=== PATIENT | female | born 1990 | race Caucasian/White ===

== ENCOUNTER 2018-08-24 05:35 | Emergency (ER) | payer OTHER ==
[~2018-08-24] VITALS: Ht 149.9 cm; Wt 91.6 kg
[2018-08-24] MEDS ORDERED: ONDANSETRON HCL INJ 2 MG/ML VIAL IV STA ×2 (06:16→07:30)
[2018-08-24] MEDS ORDERED: SODIUM CHLORIDE 0.9% 1000ML 1,000 ML IV ONE (06:30)
[2018-08-24 07:36] VITALS: BP 138/88
== END 2018-08-24 07:50 | disposition home or self-care (01) ==
LOC: FSED 05:37
DX: R11.0 Nausea (principal); K29.00 Acute gastritis without bleeding
CPT/HCPCS: 80053; 81003; 81025; 83518; 85025; 87400; 99283; J2405; J7030

== ENCOUNTER 2020-06-26 19:49 | Emergency (ER) | payer OTHER ==
[~2020-06-26] VITALS: Ht 149.9 cm; Wt 91.6 kg
--- NOTE | 2020-06-26 20:00 | Emergency Department Note ---
History of Present Illnes History of Present Illness Chief Complaint: COVID PUI History of Present Illness This is a 30 year old female with acute on chronic cough following a meal. Patient seen at bedside non-toxic apearing . Arrival Mode: Car Counter Cutter Required: Yes Onset (how long ago): day(s) (1) Radiation: Reports non-radiation Severity: mild Onset quality: sudden Duration (how long): day(s) (1) Timing of current episode: constant Progression: partially resolved Chronicity: new Context: Denies recent illness, Denies recent surgery, Denies recent immobilization, Denies recent travel, Denies trauma/injury, Denies new medications, Denies hx of DVT/PE, Denies non-compliance w/ medications, Denies other Exacerbating factors: eating Associated symptoms: Reports cough; Denies fever/chills, Denies shortness of breath, Denies weakness Treatments prior to arrival: none Previous service: one or more referrals Past Medical/Family History Physician Review I have reviewed the patient's past medical and family history. Any updates have been documented here. Past Medical History Recent Fever: No Clinical Suspicion of Infectio: No New/Unexplained Change in Ment: No Other Medical History: VITAMIN-D DEFICIENCY Past Surgical History: None Social History Smoking Cessation: Never Smoker Alcohol Use: None Any Illegal Drug Use: No Other Last Tetanus: UNK Review of Systems Review of Systems Constitutional: Reports no symptoms EENTM: Reports no symptoms Cardiovascular: Reports no symptoms Respiratory: Reports cough Gastrointestinal: Reports no symptoms Genitourinary: Reports no symptoms Musculoskeletal: Reports no symptoms Integumentary: Reports no symptoms Neurological: Reports no symptoms Psychological: Reports no symptoms Endocrine: Reports no symptoms Hematological/Lymphatic: Reports no symptoms Physical Exam Related Data Allergies: Coded Allergies: hydrocodone (Verified Allergy, Intermediate, ITCH, 08/24/18) Penicillins (Unverified Allergy, Unknown, FEVERS, 08/24/18) Triage Vital Signs Vital Signs Date Time Temp Pulse Resp B/P (MAP) Pulse Ox O2 Delivery O2 Flow Rate FiO2 06/26/20 20:00 98.6 91 16 138/90 100 Room Air Vital signs reviewed: Yes Physical Exam CONSTITUTIONAL Constitutional: Present well-developed, Present well-nourished HENT HENT: Present normocephalic, Present atraumatic, Present oropharynx clear/moist, Present nose normal HENT L/R: Present left ext ear normal, Present right ext ear normal EYES Eyes: Reports PERRL, Reports conjunctivae normal NECK Neck: Present ROM normal PULMONARY Pulmonary: Present effort normal, Present breath sounds normal CARDIOVASCULAR Cardiovascular: Present regular rhythm, Present heart sounds normal, Present capillary refill normal, Present normal rate GASTROINTESTINAL Abdominal: Present soft, Present nontender, Present bowel sounds normal GENITOURINARY Genitourinary: Present exam deferred SKIN Skin: Present warm, Present dry MUSCULOSKELETAL Musculoskeletal: Present ROM normal NEUROLOGICAL Neurological: Present alert, Present oriented x 3, Present no gross motor or sensory deficits PSYCHOLOGICAL Psychological: Present mood/affect normal, Present judgement normal Assessment & Plan Medical Decision Making MDM 30 yof presents to the ED for post-prandial cough Diff Dx : URI, COVID-19 infection PNA, PNA, GERD Assessment & Plan Final Impression: (1) Cough (2) Gastritis Depart Disposition: HOME, SELF-CARE Last Vital Signs Date Time Temp Pulse Resp B/P (MAP) Pulse Ox O2 Delivery O2 Flow Rate FiO2 06/26/20 21:37 74 17 100 06/26/20 20:00 98.6 138/90 Room Air [facility] Jun 26, 2020 20:00
--- OUTSIDE RECORDS SUMMARY | 2020-06-26 20:12 | XMS REPORT | Continuity of Care Document ---
Author Author [employer]o [employer] pte, THERESA SHELDON Organization [employer] Address Unknown Phone Unavailable Care Team Providers Care Alignment Specialist Name Role Phone [employer] Unavailable Un available Problems Problem Status Onset Date Classification Date Reported Comments Source R42 DIZZINESS AND GIDDINESS, H81.90 UNSP Active 07/20/2019 [facility] GI BLEED Active 04/13/2019 [facility] VOMITING BLOOD Active 04/13/2019 [facility] Left lower quadrant pain 05/03/2017 05/06/2017 [facility] PELVIC PAIN Active 05/03/2017 [facility] 789.0 - ABDOMINAL PAIN Active 09/13/2012 [place] Hypertensive disorder, systemic arterial (disorder) Resolved Problem 08/03/2019 [facility] GASTROINTESTINAL HEMORRHAGE, UNSPECIFIED Active [facility] Medications Medication Details Route Status Patient Instructions Ordering Provider Order Date Source omeprazole 40 mg oral delayed release capsule 40 mg, PO, Daily, # 30 cap, 0 Refill(s), Pharmacy: [facility] [id number] Active 04/15/2019 [facility] Omeprazole 40 mg, Route: PO, Neville harris, Dosing Weight 96.818, kg, Start date: 04/15/19 9:00:00 CDT, Duration: 30 day, Stop date: 05/14/19 9:00:00 CDT No Longer Active 04/15/2019 [facility] Fluoxetine Notes: (Same as: Pr ozac) Inactive 04/15/2019 [facility] Xylocaine Viscous 2% mucous membrane solution Notes: (Same as: Xylocaine) No Longer Active 04/14/2019 [facility] Al hydroxide/Mg hydroxide/simethicone Notes: (aluminum hydroxide-magnesium hyd-simethicone [phone]/5ml 30 ml ud ANA) No Longer Active 04/14/2019 [facility] Reglan Notes: (Same as: Reglan) No Longer Active 04/14/2019 [facility] GI cocktail (aluminum hydroxide/magnesiu m hydroxide/lidocaine/simethicone) 30 ml, Route: PO, Drug Form: SUSP, Dosin g Weight 96.818, kg, Q6H, PRN, Routine, Start date: 04/14/19 17:20:00 CDT, Duration: 30 day, Stop date: 05/14/19 17:19:00 CDT, abdominal pain Inactive 04/14/2019 [facility] pantoprazole Notes: Same as: P rotonix Mix in 5 mL apple juice or applesauce for oral & 10mL apple juice for NG tube No Longer Active 04/14/2019 [facility] Aluminum Hydroxide / Magnesium Hydroxide / Simethicone Notes: (aluminum hydroxide-magnesium hyd-simethicone [phone]/5ml 30 ml ud ANA) Inactive 04/14/2019 [facility] Omeprazole 40 mg, PO, Daily, 0 Refill(s) No Longer Active 04/14/2019 [facility] bismuth subsalicylate 262 mg oral tablet 524 mg = 2 tab, CHEW, QID, PRN for dyspepsia, # 12 tab, 0 Refill(s) Inactive 04/14/2019 [facility] Zofran 4 mg, PO, TID, 0 Refill (s) Active 04/14/2019 [facility] Metronidazole 500 mg = 1 tab, PO, BID, # 14 tab, 0 Refill(s) Inactive 04/14/2019 [facility] Levonorgestrel 0.825630 MG/HR Drug Implant [Geno] 13.5 mg = 1 ea, Intrauteral, ONCE, 0 Refill(s) Active 04/14/2019 [facility] Tetracycline 500 MG Oral Capsule 500 mg = 1 cap, PO, Q6H, # 28 cap, 0 Refill(s) Inactive 04/14/2019 [facility] Fluoxetine 10 mg, PO, Daily, 0 Refill(s) Active 04/14/2019 [facility] Zofran Notes: (Same as: Zofran ) MEDICATION WASTE Product Size: 4 mg Product Wasted: ___ mg No Longer Active 04/14/2019 [facility] Sodium Chloride 0.9% IV 1,000 mL 1,000 mL, Rate: 25 ml/hr, Infuse over: 40 hr, Route: IV, Dosing Weight 96.818 kg, Total Volume: 1,000, Start date: 04/14/19 9:22:00 CDT, Duration: 1 day, Stop date: 04/15/19 9:21:00 CDT, 2.05, m2 Inactive 04/14/2019 [facility] Morphine 2 mg, 1 mL, Route: IV , Drug form: SOLN, Q4H, Dosing Weight 96.818, kg, PRN Pain Score 7-10, Start date: 04/14/19 4:53:00 CDT, Duration: 30 day, Stop date: 05/14/19 4:52:00 CDT No Longer Active 04/14/2019 [facility] Saline Flush 0.9% Notes: (Same as: BD Posiflush) No Longer Active 04/14/2019 [facility] Lactated Ringers IV 1,000 mL 1 ,000 mL, Rate: 100 ml/hr, Infuse over: 10 hr, Route: IV, Dosing Weight 96.818 kg, Total Volume: 1,000, Start date: 04/14/19 4:50:00 CDT, Duration: 30 day, Stop date: 05/14/19 4:49:00 CDT, 2.05, m2 No Longer Active 04/14/2019 [facility] Ondansetron Notes: (Same as: Nanette rg) MEDICATION WASTE Product Size: 4 mg Product Wasted: ___ mg Inactive 04/14/2019 [facility] Sodium Chloride 0.9% (Bolus) IV 1,000 mL, 1000 ml/hr, Infuse Over: 1 hr, Route: IV, 1,000, Drug form: INJ, ONCE, Priority: STAT, Dosing Weight 96.818 kg, Start date: 04/14/19 2:48:00 CDT, Stop date: 04/14/19 2:48:00 CDT Inactive 04/14/2019 [facility] Protonix 80 mg, Route: IVP, ON CE, Dosing Weight 96.818, kg, Priority: STAT, Start date: 04/14/19 2:14:00 CDT, Stop date: 04/14/19 2:14:00 CDT Inactive 04/14/2019 [facility] pantoprazole 40 mg, Route: IVP , ONCE, Dosing Weight 96.818, kg, Priority: STAT, Start date: 04/14/19 1:57:00 CDT, Stop date: 04/14/19 1:57:00 CDT Inactive 04/14/2019 [facility] Zofran 4 mg, Route: PO, Drug f orm: TABDIS, ONCE, Dosing Weight 86.364, kg, Priority: STAT, Start date: 05/03/17 12:57:00 CDT, Stop date: 05/03/17 12:57:00 CDT Inactiv e 05/03/2017 [facility] Ondansetron 4 MG Oral Tablet [Zofran] 4 mg = 1 tab, PO, BID, X 5 day, # 10 tab, 0 Refill(s) Active 05/03/2017 [facility] Acetaminophen 300 MG / Codeine Phosphate 30 MG Oral Tablet [Tylenol with Codeine #3] 1 - 2 tab, PO, Q4H, PRN Pain, X 1 day, # 10 tab, 0 Refill(s) No Longer Active 05/03/2017 [facility] Acetaminophen 300 MG / Codeine Phosphate 30 MG Oral Tablet [Tylenol with Codeine #3] 1 tab, Route: PO, Drug Form: TAB, Dosing Weight 86.364, kg, ONCE, STAT, Start date: 05/03/17 11:17:00 CDT, Stop date: 05/03/17 11:17:00 CDT Inactive 05/03/2017 [facility] Acetaminophen 300 MG / Codeine Phosphate 30 MG Oral Tablet [Tylenol with Codeine #3] 1 tab, Route: PO, Drug Form: TAB, Dosing Weight 86.364, kg, ONCE, STAT, Start date: 05/03/17 10:37:00 CDT, Stop date: 05/03/17 10:37:00 CDT Inactive 05/03/2017 [facility] Allergies, Adverse Reactions, Alerts Substance Category Reaction Severity Reaction type Status Date Reported Comments Source penicillins Assertion Hydrocodone Drug allergy Active [facility] HYDROcodone Assertion Drug allergy Active [facility] Immunizations No Data Provided for This Section Results Order Name Results Value Reference Range Date Interpretation Comments Source HEMATOLOGY Hgb 13.8 12.0 - 16.0 04/15/2019 [facility] HEMATOLOGY Hct 40.8 36.0 - 48.0 04/15/2019 [facility] HEMATOLOGY Hgb 13.6 12.0 - 16.0 04/15/2019 [facility] HEMATOLOGY Hct 40.1 36.0 - 48.0 04/15/2019 [facility] HEMATOLOGY Hgb 14.2 12.0 - 16.0 04/14/2019 [facility] HEMATOLOGY Hct 42.3 36.0 - 48.0 04/14/2019 [facility] HEMATOLOGY PTT 25.8 22.9 - 35.8 04/14/2019 [facility] HEMATOLOGY PT 12.7 12.0 - 14.7 04/14/2019 [facility] HEMATOLOGY INR 0.97 0.85 - 1.17 04/14/2019 [facility] BLOOD BANK RESULTS Antibody Scrn Negative (04/14/19 3:57 AM) 04/14/2019 [facility] BLOOD BANK RESULTS ABO/Rh A POS 04/14/2019 [facility] CHEM PANEL Lipase Lvl 142 73 - 393 04/14/2019 [facility] CHEM PANEL Total Protein 6.8 6.4 - 8.4 04/14/2019 [facility] CHEM PANEL eGFR 95 04/14/2019 Result Comment: The eGFR is calculated using the CKD-EPI formula. In most young, healthy individuals the eGFR will be >90 mL/min/1.73m2. The eGFR declines with age. An eGFR of 60-89 may be normal in some populations, particularly the elderly, for whom the CKD-EPI formula has not been extensively validated. Use of the eGFR is not recommended in the following populations:

Individuals with unstable creatinine concentrations, including patients and those with serious co-morbid conditions.

Patients with extremes in muscle mass or diet.

The data above are obtained from the National Kidney Disease Education Program (NKDEP) which additionally recommends that when the eGFR is used in patients with extremes of body mass index for purposes of drug dosing, the eGFR should be multiplied by the estimated BMI. [facility] CHEM PANEL ALT 42 0 - 65 04/14/2019 [facility] CHEM PANEL AST 46 0 - 37 04/14/2019 [facility] CHEM PANEL Alk Phos 62 39 - 136 04/14/2019 [facility] CHEM PANEL Calcium Lvl 8.6 8.5 - 10.5 04/14/2019 [facility] CHEM PANEL Potassium Lvl 4.5 3.5 - 5.1 04/14/2019 [facility] CHEM PANEL Chloride Lvl 111 95 - 109 04/14/2019 [facility] CHEM PANEL CO2 22 24 - 32 04/14/2019 [facility] CHEM PANEL Sodium Lvl 141 135 - 145 04/14/2019 [facility] CHEM PANEL BUN 14 7 - 22 04/14/2019 [facility] CHEM PANEL Creatinine Lvl 0.85 0.50 - 1.40 04/14/2019 [facility] CHEM PANEL Glucose Lvl 113 70 - 99 04/14/2019 [facility] CHEM PANEL Bili Total 0.5 0.2 - 1.3 04/14/2019 [facility] CHEM PANEL Albumin Lvl 3.1 3.5 - 5.0 04/14/2019 [facility] CHEM PANEL Globulin 3.7 2.7 - 4.2 04/14/2019 [facility] CHEM PANEL A/G Ratio 0.8 0.7 - 1.6 04/14/2019 [facility] CHEM PANEL B/C Ratio 16 6 - 25 04/14/2019 [facility] CHEM PANEL AGAP 12.5 10.0 - 20.0 04/14/2019 [facility] ENDOCRINOLOGY S Preg Ne gative *NA* (04/14/19 3:57 AM) Negative 04/14/2019 [facility] HEMATOLOGY RBC 4.70 4.20 - 5.40 04/14/2019 [facility] HEMATOLOGY WBC 7.0 3.7 - 10.4 04/14/2019 [facility] HEMATOLOGY MCV 89.4 80.0 - 98.0 04/14/[address] [facility] MCH 30.5 27.0 - 31.0 04/14/[address] [facility] MCHC 34.1 32.0 - 36.0 04/14/[address] [facility] MPV 8.8 7.4 - 10.4 04/14/[address] [facility] Platelet 232 133 - 450 04/14/2019 [facility] HEMATOLOGY RDW 12.7 11.5 - 14.5 04/14/2019 [facility] HEMATOLOGY Neutrophils # 4.5 1.5 - 8.1 04/14/2019 [facility] HEMATOLOGY Lymphocytes # 1.9 1.0 - 5.5 04/14/2019 [facility] HEMATOLOGY Monocytes # 0.4 0.0 - 0.8 04/14/2019 [facility] HEMATOLOGY Basophils # 0.1 0.0 - 0.2 04/14/2019 [facility] HEMATOLOGY Eosinophils # 0.1 0.0 - 0.5 04/14/2019 [facility] HEMATOLOGY Monocytes 5.8 2.0 - 12.0 04/14/2019 [facility] HEMATOLOGY Basophils 0.9 0.0 - 1.0 04/14/2019 [facility] HEMATOLOGY Eosinophils 1.6 0.0 - 4.0 04/14/2019 [facility] HEMATOLOGY Segs 64.1 45.0 - 75.0 04/14/2019 [facility] HEMATOLOGY Lymphocytes 27.6 20.0 - 40.0 04/14/2019 [facility] URINE AND STOOL UA Hyal Cast 3 0 - 2 04/14/2019 [facility] URINE AND STOOL UA CaOx [place] Occasional /HPF None Seen /HPF 04/14/[address] [facility] [address] URINE AND STOOL UA Color Karen 04/14/2019 [facility] URINE AND STOOL UA Urobilinogen <=1.0 mg/dL 0.1 - 1.0 04/14/2019 [facility] URINE AND STOOL UA Mucus Many /LPF None Seen /LPF 04/14/2019 [facility] URINE AND STOOL UA RBC 3 0 - 2 04/14/2019 [facility] URINE AND STOOL UA WBC 4 0 - 5 04/14/2019 [facility] URINE AND STOOL UA Sq Epi Many /LPF Few /LPF 04/14/2019 [facility] URINE AND STOOL UA Protein Negative mg/dL Negative mg/dL 04/14/[address] [facility] [address] URINE AND STOOL UA Bili Negative *NA* (04/14/19 3:57 AM) Negative 04/14/2019 [facility] URINE AND STOOL UA Ketones Negative mg/dL Negative mg/dL 04/14/[address] [facility] [address] URINE AND STOOL UA Glucose Negative mg/dL Negative mg/dL 04/14/[address] [facility] [address] URINE AND STOOL UA Blood Negative (04/14/19 3:57 AM) Negative 04/14/2019 [facility] URINE AND STOOL UA Leuk Est Trace *ABN* (04/14/19 3:57 AM) Negative 04/14/2019 [facility] URINE AND STOOL UA Nitrite Negative (04/14/19 3:57 AM) Negative 04/14/2019 [facility] URINE AND STOOL UA Turbidity Marked *ABN* (04/14/19 3:57 AM) Clear 04/14/2019 [facility] URINE AND STOOL UA pH 5.0 5.0 - 8.0 04/14/2019 [facility] URINE AND STOOL UA Spec Grav 1.030 <=1.030 04/14/2019 [facility] URINE AND STOOL UA Bacteria Occasional /HPF None Seen /HPF 05/03/[address] [facility] [address] URINE AND STOOL UA Hyal Cast 1 0 - 2 05/03/2017 [facility] URINE AND STOOL UA Mucus Few /LPF None Seen /LPF 05/03/2017 [facility] URINE AND STOOL UA Urobilinogen <=1.0 mg/dL 0.1 - 1.0 05/03/2017 [facility] URINE AND STOOL UA Color Yellow *NA* (05/03/17 10:50 AM) Yellow 05/03/2017 [facility] URINE AND STOOL UA Turbidity Marked *ABN* (05/03/17 10:50 AM) Clear 05/03/2017 [facility] URINE AND STOOL UA Spec Grav 1.024 <=1.030 05/03/2017 [facility] URINE AND STOOL UA Leuk Est Negative (05/03/17 10:50 AM) Negative 05/03/2017 [facility] URINE AND STOOL UA Sq Epi Few /LPF Few /LPF 05/03/2017 [facility] URINE AND STOOL UA Nitrite Negative (05/03/17 10:50 AM) Negative 05/03/2017 [facility] URINE AND STOOL UA Blood Moderate *ABN* (05/03/17 10:50 AM) Negative 05/03/2017 [facility] URINE AND STOOL UA WBC 1 0 - 5 05/03/2017 [facility] URINE AND STOOL UA Glucose Negative mg/dL Negative mg/dL 05/03/2017 [facility] URINE AND STOOL UA RBC 17 0 - 2 05/03/2017 [facility] URINE AND STOOL UA Protein Negative mg/dL Negative mg/dL 05/03/[address] [facility] [address] URINE AND STOOL UA Ketones 20 mg/dL Negative mg/dL 05/03/2017 [facility] URINE AND STOOL UA pH 5.0 5.0 - 8.0 05/03/2017 [facility] URINE AND STOOL UA Bili Negative *NA* (05/03/17 10:50 AM) Negative 05/03/2017 [facility] URINE CHEM U Preg Negat karie (05/03/17 10:50 AM) Negative 05/03/2017 [facility] Pathology Reports No Data Provided for This Section Diagnostic Reports Report Value Date Source Brain/IAC's w/wo contrast MRI Patient Name: THERESA WARNER : 1990; Age: 29 years y/o Female MR: [id number] Study: w/wo contrast MRI 08/01/2019 8:22 PM CDT Ordering Physician: Kathryn Garcia MD Clinical Indication: R42 Dizziness and giddiness - .; Comparison: None. TECHNIQUE: Multiplanar MRI of the brain is performed with internal auditory canal protocol including thin section cerebellopontine angle pre and post Gadolinium contrast enhanced images. Contrast: 18 cc of gadolinium was administered. FINDINGS: INTERNAL AUDITORY CANALS: The cerebellopontine angles are normal. Cranial nerves VII and VIII are normal. There is no abnormal contrast enhancement seen. There is a normal appearance of the fluid in the semicircular canals. The cavernous sinuses and Meckel's cave regions are normal. The skull base, petrous apices and clivus are normal. The mastoid air cells are clear. BRAIN PARENCHYMA: The brain parenchyma has normal signal, with normal colon-white junction, sulci and gyri. There is no mass effect or midline shift. There is no extra-axial fluid collection, intraparenchymal hemorrhages. The ventricles and cisterns are normal. There are no diffusion-weighted abnormalities to suggest acute/subacute ischemia. The corpus callosum is normal. The expected intracranial flow-voids are present. The venous sinuses are grossly unremarkable. The optic chiasm and sella are unremarkable. The midbrain, martha and medulla are unremarkable. The cerebellum is unremarkable. The craniocervical junction is normal. The visualized orbits and paranasal sinuses are unremarkable. IMPRESSION: No abnormality within cerebellopontine angles or internal auditory canals. No abnormal enhancement. Unremarkable magnetic resonance imaging of the brain and IACs. 08/01/2019 [facility] Abdomen AP DX Patient Name: ME MARYJANE WARNER : 1990; Age: 28 years y/o Female MR: [id number] Study: Abdomen AP DX 04/14/2019 5:22 PM CDT Ordering Physician: Marah Pedroza MD Clinical Indication: - abdominal pain, nausea, vomiting; Comparison: None Discussion: 18 mm linear radiopaque foreign body projects over the left upper quadrant of the abdomen in the region of the gastric fundus. T-shaped intrauterine device is seen centrally in the pelvis. Mild scoliosis. Calcified phleboliths in the pelvis. No mass or dilated loops of bowel. IMPRESSION: 1. 18 mm radiopaque foreign body in the region of the gastric fundus. 2. No dilated bowel loops. SL: [id number] 04/14/2019 [facility] Chest 1view DX Clinical Indica tion: - cough, hemoptysis Comparison: None FINDINGS: The AP chest radiograph shows normal lung volumes without interstitial or airspace opacities, pleural effusions or pneumothorax. The cardiomediastinal contours are normal. The trachea is midline. There are no clinically significant osseous abnormalities noted. IMPRESSION: No chest radiographic evidence of acute cardiopulmonary disease. SL:82 04/14/2019 [facility] Pelvis Transvag w Pelvis Doppler US Pelvis Transvag w Pelvis Doppler US ; 26 years /o Female Clinical Indication: - LLQ pain, hx of ovarian cysts requiring lap and removal; Comparison: None Technique: Grayscale, color and Doppler transabdominal and transvaginal imaging of the pelvis was performed with standard technique. FINDINGS: TRANSABDOMINAL PELVIC ULTRASOUND: UTERUS: The transabdominal pelvic ultrasound evaluation of the uterus shows that the anteverted uterus measures 6.6 x 2.1 x 3.7 cm in size. A linear echogenic structure within the uterus is consistent with an intrauterine device. This is better seen on the transvaginal study. OVARIES: The ovaries are not well seen on the transabdominal portion of the exam, related to bowel gas in the pelvis. OTHER FINDINGS: The transabdominal sonographic images show no free fluid in the pelvic cul-de-sac. TRANSVAGINAL PELVIC ULTRASOUND: UTERUS: The pelvic transvaginal sonographic images show normal uterine contour and morphology. An intrauterine device is present within the uterine cavity. There is normal parenchymal echotexture. OVARIES: Right ovary measures 3.0 x 1.7 x 2.3 cm Left ovary measures 2.7 x 1.7 x 2.3 cm. There is normal ovarian contour and morphology. There are no adnexal masses. The Doppler images show normal bilateral ovarian arterial and venous blood flow. OTHER FINDINGS: The transvaginal sonographic images show no free fluid in the pelvic cul-de-sac. IMPRESSION: 1. Normal appearance of the ovaries bila terally. 2. Intrauterine device. SL: [id number] 05/03/2017 [facility] Consultation Notes No Data Provided for This Section Discharge Summaries No Data Provided for This Section History and Physicals No Data Provided for This Section Vital Signs Vital Sign Value Date Comments Source Respitory Rate 17 04/15/2019 [facility] Systolic (mm Hg) 119 04/15/2019 [facility] Diastolic (mm Hg) 81 04/15/2019 [facility] Heart Rate 80 04/15/2019 [facility] Temperature Oral (F) 98.3 F 04/15/2019 [facility] Systolic (mm Hg) 130 04/15/2019 [facility] Diastolic (mm Hg) 82 04/15/2019 [facility] Respitory Rate 16 04/15/2019 [facility] Temperature Oral (F) 97.9 F 04/15/2019 [facility] Heart Rate 81 04/15/2019 [facility] Systolic (mm Hg) 109 04/14/2019 [facility] Diastolic (mm Hg) 73 04/14/2019 [facility] Respitory Rate 16 04/14/2019 [facility] Temperature Oral (F) 97.9 F 04/14/2019 [facility] Heart Rate 82 04/14/2019 [facility] BMI Calculated 43.11 04/14/2019 [facility] Height 149.86 cm 04/14/2019 [facility] Weight 96.818 04/14/2019 [facility] Weight 96.818 04/14/2019 [facility] BMI Calculated 43.11 04/14/2019 [facility] Height 149.86 cm 04/14/2019 [facility] Systolic (mm Hg) 157 05/03/2017 [facility] Diastolic (mm Hg) 89 05/03/2017 [facility] Temperature Oral (F) 98.0 F 05/03/2017 [facility] Respitory Rate 18 05/03/2017 [facility] Heart Rate 79 05/03/2017 [facility] Height 149.86 cm 05/03/2017 [facility] BMI Calculated 38.46 05/03/2017 [facility] Weight 86.364 05/03/2017 [facility] Respitory Rate 18 05/03/2017 [facility] Heart Rate 93 05/03/2017 [facility] Temperature Oral (F) 98.4 F 05/03/2017 [facility] Systolic (mm Hg) 136 05/03/2017 [facility] Diastolic (mm Hg) 84 05/03/2017 [facility] Encounters Location Location Details Encounter Type Encounter Number Reason For Visit Attending Provider ADM Date DC Date Status Source OD [id number] 789.0 - ABDOMINAL PAIN GINGER ADAIR 09/14/2012 Active [facility] [place] [facility] [id number] Kaleb Amos 05/03/2017 05/03/2017 [facility] Observation [id number] Marah Tedja 04/14/2019 04/15/2019 [facility] Outpatient [id number] Kathryn Crabtreeonald 08/02/2019 08/02/2019 [facility] Procedures Procedure Code Date Perfomer Comments Source Procedure<sup>1</sup> [id number] [facility] Assessment and Plan Assessment and Plan Date Source Extracted from:Title: Clinical Document Author: Pushpa Nunez Date: 04/15/19 Progress Note - Daily [facility] Completed: Monday, APRIL 15, 2019, 09:23 by Pushpa Nunez RM: [id number] THERESA WARNER 28y (: 1990) F Attending: Marah Pedroza MD Service: Internal Medicine Reason for Admission: GI BLEED Working DRG: Code status: Full Code Current diet: Isolation: No Isolation/Standard Precautions Allergies: HYDROcodone, penicillins(Hydrocodone) SUBJECTIVE nausea+ some mild upper abdominal discomfort no further hematemesis or melena, no hematochezia BM this AM, normal eating full liquid diet ok no fever/chills no vomiting OBJECTIVE 24hr Labs 04/15 0616 Hgb 13.8 Hct 40.8 04/14 2048 Hgb 13.6 Hct 40.1 04/14 1226 Hgb 14.2 Hct 42.3 Acevedo still necessary (Yes/No): Line still necessary (Yes/No): Vitals Tmp(F) Pulse BP RR SpO2 FIO2 04/15 07:43 98.3 80 119/81 1 7 99 --- 04/14 23:09 97.9 81 130/82 1 6 99 --- 04/14 16:03 97.9 --- 109/73 16 --- --- 04/14 10:52 ---- 80 110/71 1 9 97 --- 04/14 10:37 ---- 77 109/75 1 7 100 --- 24 Hr Tmax: 98.3F (36.83c) at 04/15 07:4 3 Vital Signs are the last 5 in the past 48 hours. Date Wt(kg) Wt(lb) Ht(cm) Ht(in) Method 04/14 (initial) 96.82 213.00 Estimated 04/14 149.86 59.00 Stated I&O Record In Out Bal 04/14 24hr Tot 1383 0 1383 04/13 24hr Tot 1000 0 1000 Medications (14) Active Scheduled Meds (2): 04/15/19 FLUoxetine 10 mg PO Daily 04/14/19 pantoprazole (Protonix) 40 mg P O Q12H Unscheduled Meds: None PRN Meds (6): 04/14/19 Al hydroxide/Mg hydroxide/simet hicone 30 mL PO Q6H 04/14/19 lidocaine topical (Xylocaine Vi scous 2% mucous membrane solution) 15 mL PO Q6H 04/14/19 metoclopramide (Reglan) 10 mg I SAMPLER PICKUP Q6H 04/14/19 morphine Sulfate 2 mg IV Q4H 04/14/19 ondansetron (Zofran) 4 mg IVP Q 6H 04/14/19 sodium chloride (Saline Flush 0 .9%) 10 ml IVP PRN One Time Meds (5): 04/14/19 (Completed) Al hydroxide/Mg hy droxide/simethicone (GI cocktail WITHOUT lidocaine (aluminum hydroxide/magnesium hydroxide/simethicone)) 30 ml PO ONCE 04/14/19 (Completed) Sodium Chloride 0. 9% IV (Sodium Chloride 0.9% (Bolus) IV) 1,000 mL IV ONCE 1000 ml/hr 04/14/19 (Completed) ondansetron 4 mg I SAMPLER PICKUP ONCE 04/14/19 (Discontinued) pantoprazole 40 mg IVP ONCE 04/14/19 (Completed) pantoprazole (Prot shanelle) 80 mg IVP ONCE Continuous Infusions (1): 04/14/19 Lactated Ringers Injection IV 1 ,000 mL (Lactated Ringers IV 1,000 mL) 1,000 mL 100 ml/hr EXAM General: awake, alert, no acute distress HEENT: normocephalic, atraumatic, sclera anicteric Neck: Supple Respiratory: Clear to auscultation bilaterally, no retractions Cardiac: S1, S2 distinct, no murmur Abdomen: soft, nondistended, +BS, obese, mild LUQ tenderness to deep palpation, no rebound tenderness Ext: no LE edema, no rash Skin: warm, pink, dry Neuro: AxOx3 IMPRESSION: 1. hematemesis - resolved -s/p EGD 04/14: EGD, findings notable for 5 mm gastric polyp, bx pending, oozing after bx with clip placement to achieve hemostasis. Otherwise normal mucosa 2. abdominal discomfort 3. nausea 4. hx of H pylori + via Urea breath test PLAN: 1. f/up bx results 2. Protonix 40 mg BID daily 3. Hold prescribed H pylori medications until bx results come back 4. advance to regular diet low fat, soft low fiber diet as tolerated 5. antiemetics, analgesia prn 6. monitor for overt GI bleeding; curren tly hemodynamically stable 7. avoid NSAIDs 8. okay to discharge from GI standpoint if tolerating soft diet ok and no further overt GI bleeding. 9. F/up with Dr. Renteria in GI clinic in 1 week post discharge GI ATTENDING I have examined the patient with the PROJECT DEVELOPMENT COORDINATOR and confirmed the essential components of history, physical examination, diagnosis and treatment plan. I agree with the patient's care as documented by the PROJECT DEVELOPMENT COORDINATOR, and amended as needed herein by me. Lalo Renteria MD GI Attending Extracted from:Title: GI Consult * Author: Lalo Renteria MD Date: 04/14/19 Impression and Plan IMPRESSION: 1. hematemesis 2. abdominal discomfort 3. nausea 4. hx of H pylori + via Urea breath test PLAN: 1. EGD today with Dr Renteria. She was seen post EGD, findings notable for 5 mm gastric polyp, bx pending, oozing after bx with clip placement to achieve hemostasis. Otherwise normal mucosa 2. Protonix 40 mg daily 3. Hold prescribed H pylori medications until bx results come back 4. f/up bx results 5. regular diet low fat, soft low fiber diet as tolerated 6. antiemetics, analgesia prn 7. monitor for overt GI bleeding; curren tly hemodynamically stable 8. avoid NSAIDs 9. okay to discharge from GI standpoint if tolerating regular diet ok and no further overt GI bleeding. 10. F/up with Dr. Renteria in GI clinic in 2 weeks post discharge GI ATTENDING I have examined the patient with the PROJECT DEVELOPMENT COORDINATOR and confirmed the essential components of history, physical examination, diagnosis and treatment plan. I agree with the patient's care as documented by the PROJECT DEVELOPMENT COORDINATOR, and amended as needed herein by me. Lalo Renteria MD GI Attending Extracted from:Title: History and Physical Author: Dayna Klein MD Date: 04/14/19 28-year-old female with recently diagnos ed H. pylori who presented to the ED with hematemesis. Hematemesis - continue PPI IV q12h - GI consult - trend H/H - NPO, IVF H pylori - hold treatment until hematemesis is fu lly evaluated SCD anticipate 2-3 midnights 04/15/2019 [facility] Plan of Care No Data Provided for This Section Social History Social History Date Source Social History TypeResponse Smoking Status Never smoker; Exposure to Tobacco Smoke None; Cigarette Smoking Last 365 Days No; Reg Smoking Cessation Counseling No entered on: 04/14/19 04/14/2019 [facility] Family History No Data Provided for This Section Advance Directives No Data Provided for This Section Functional Status No Data Provided for This Section
--- OUTSIDE RECORDS SUMMARY | 2020-06-26 20:12 | XMS REPORT | Summary of Care ---
Author Author [facility] Organization [facility] Address Unknown Phone Unavailable Encounter HAO Fuchs(SHABBIR) [id number] Date(s): 05/03/17 - 05/03/17 [facility] [address] [place] [address]- [phone] Discharge Diagnosis: Abdominal pain, acute, left lower quadrant Discharge Disposition: Home or Self Care Attending Physician: Kaleb Amos MD Vital Signs Most recent to 1 2 oldest [Reference Range]: Height 149.86 cm (05/03/17 10:09 AM) Temperature Oral 98.0 DegF 98.4 DegF [96.4-99.1 DegF] (05/03/17 1:41 PM) (05/03/17 10:09 AM) Blood Pressure 157/89 mmHg 136/84 mmHg [90-140/60-90 mmHg] *HI* (05/03/17 10:09 AM) (05/03/17 1:41 PM) Respiratory Rate 18 BRMIN 18 BRMIN [14-20 BRMIN] (05/03/17 1:41 PM) (05/03/17 10:09 AM) Peripheral Pulse 79 bpm 93 bpm Rate [60-100 bpm] (05/03/17 1:41 PM) (05/03/17 10:09 AM) Weight 86.364 kg (05/03/17 10:09 AM) Body Mass Index 38.46 m2 (05/03/17 10:09 AM) Problem List Condition Effective Dates Status Health Status Informan t Hypertension(Confirm Resolved ed) Allergies, Adverse Reactions, Alerts Substance Reaction Severity Status penicillins Hydrocodone Active Medications Tylenol with Codeine #3 oral tablet 1 tab, Route: PO, Drug Form: TAB, Dosing Weight 86.364, kg, ONCE, STAT, Start da te: 05/03/17 11:17:00 CDT, Stop date: 05/03/17 11:17:00 CDT Start Date: 05/03/17 Stop Date: 05/03/17 Status: Completed Tylenol with Codeine #3 oral tablet 1 tab, Route: PO, Drug Form: TAB, Dosing Weight 86.364, kg, ONCE, STAT, Start da te: 05/03/17 10:37:00 CDT, Stop date: 05/03/17 10:37:00 CDT Start Date: 05/03/17 Stop Date: 05/03/17 Status: Completed Tylenol with Codeine #3 oral tablet 1 - 2 tab, PO, Q4H, PRN Pain, X 1 day, # 10 tab, 0 Refill(s) Start Date: 05/03/17 Stop Date: 05/04/17 Status: Completed Zofran 4 mg, Route: PO, Drug form: TABDIS, ONCE, Dosing Weight 86.364, kg, Priority: ST AT, Start date: 05/03/17 12:57:00 CDT, Stop date: 05/03/17 12:57:00 CDT Start Date: 05/03/17 Stop Date: 05/03/17 Status: Completed Zofran 4 mg oral tablet 4 mg = 1 tab, PO, BID, X 5 day, # 10 tab, 0 Refill(s) Start Date: 05/03/17 Stop Date: 05/08/17 Status: Ordered Results URINE CHEM Most recent to 1 oldest [Reference Range]: U Preg [Negative] Negative (05/03/17 10:50 AM) URINE AND STOOL Most recent to 1 oldest [Reference Range]: UA Turbidity [Clear] Marked *ABN* (05/03/17 10:50 AM) UA Color [Yellow] Yellow *NA* (05/03/17 10:50 AM) UA pH [5.0-8.0] 5.0 (05/03/17 10:50 AM) UA Spec Grav 1.024 [<=1.030] (05/03/17 10:50 AM) UA Glucose [Negative Negative mg/dL mg/dL] *NA* (05/03/17 10:50 AM) UA Blood [Negative] Moderate *ABN* (05/03/17 10:50 AM) UA Ketones [Negative 20 mg/dL mg/dL] *ABN* (05/03/17 10:50 AM) UA Protein [Negative Negative mg/dL mg/dL] (05/03/17 10:50 AM) UA Urobilinogen <=1.0 mg/dL [0.1-1.0 mg/dL] *NA* (05/03/17 10:50 AM) UA Bili [Negative] Negative *NA* (05/03/17 10:50 AM) UA Leuk Est Negative [Negative] (05/03/17 10:50 AM) UA Nitrite Negative [Negative] (05/03/17 10:50 AM) UA WBC [0-5 /HPF] 1 /HPF (05/03/17 10:50 AM) UA RBC [0-2 /HPF] 17 /HPF *HI* (05/03/17 10:50 AM) UA Bacteria [None Occasional /HPF Seen /HPF] *NA* (05/03/17 10:50 AM) UA Sq Epi [Few /LPF] Few /LPF *NA* (05/03/17 10:50 AM) UA Hyal Cast [0-2 1 /LPF /LPF] (05/03/17 10:50 AM) UA Mucus [None Seen Few /LPF /LPF] *NA* (05/03/17 10:50 AM) Immunizations No data available for this section Procedures No data available for this section Social History Social History Type Response Smoking Status Never smoker; Exposure to T obacco Smoke None; Cigarette Smoking Last 365 Days No; Reg Smoking Cessation Counseli ng No Assessment and Plan No data available for this section
--- OUTSIDE RECORDS SUMMARY | 2020-06-26 20:12 | XMS REPORT | Summary of Care ---
Author Author [facility] Organization [facility] Address Unknown Phone Unavailable Encounter [facility] Encntr_alias(FIN) [id number] Date(s): 08/01/19 - 08/01/19 [facility] [address] [place] [address]- [phone] Discharge Disposition: Home or Self Care Attending Physician: Kathryn Garcia MD Referring Physician: Kathryn Garcia MD Vital Signs No data available for this section Problem List Condition Effective Dates Status Health Status Informan t Hypertension(Confirm Resolved ed) Allergies, Adverse Reactions, Alerts Substance Reaction Severity Status penicillins Hydrocodone Active HYDROcodone Active Medications No data available for this section Results No data available for this section Immunizations No data available for this section Procedures Procedure Date Related Diagnosis Body Site Status Procedure1 Completed 1PCOS Social History Social History Type Response Smoking Status Never smoker; Exposure to T obacco Smoke None; Cigarette Smoking Last 365 Days No; Reg Smoking Cessation Counseli ng No entered on: 04/14/19 Assessment and Plan No data available for this section
--- OUTSIDE RECORDS SUMMARY | 2020-06-26 20:12 | XMS REPORT | Summary of Care ---
Author Author [facility] Organization [facility] Address Unknown Phone Unavailable Encounter HAO Fuchs(SHABBIR) [id number] Date(s): 04/14/19 - 04/15/19 [facility] [address] [place] [address]- Discharge Disposition: Home or Self Care Attending Physician: Marah Pedroza MD Admitting Physician: Marah Pedroza MD Vital Signs 1 2 3 Most recent to oldest [Reference Range]: 149.86 cm (04/14/19 6:10 AM) 149.86 cm (04/14/19 1:27 AM) Height 98.3 DegF (04/15/19 7:43 AM) 97.9 DegF (04/14/19 11:09 PM) 97.9 DegF (04/14/19 4:03 PM) Temperature Oral [96.4-99.1 DegF] 119/81 mmHg (04/15/19 7:43 AM) 130/82 mmHg (04/14/19 11:09 PM) 109/73 mmHg (04/14/19 4:03 PM) Blood Pressure [90-140/60-90 mmHg] 17 BRMIN (04/15/19 7:43 AM) 16 BRMIN (04/14/19 11:09 PM) 16 BRMIN (04/14/19 4:03 PM) Respiratory Rate [14-20 BRMIN] 80 bpm (04/15/19 7:43 AM) 81 bpm (04/14/19 11:09 PM) 82 bpm (04/14/19 9:23 AM) Peripheral Pulse Rate [60-100 bpm] 96.818 kg (04/14/19 6:10 AM) 96.818 kg (04/14/19 1:27 AM) Weight 43.11 m2 (04/14/19 6:10 AM) 43.11 m2 (04/14/19 1:27 AM) Body Mass Index Problem List Condition Effective Dates Status Health Status Informan t Hypertension(Confirm Resolved ed) Allergies, Adverse Reactions, Alerts Substance Reaction Severity Status penicillins Hydrocodone Active HYDROcodone Active Medications Al hydroxide/Mg hydroxide/simethicone 30 mL, Route: PO, Drug Form: SUSP, Q6H, PRN Other -See Comment, Start date: 03/24 02/08 17:23:00 CDT, Duration: 30 day, Stop date: 05/14/19 17:22:00 CDT Notes: (aluminum hydroxide-magnesium hyd-simethicone 185-648-68cr/5ml 30 ml ud S US) Start Date: 04/14/19 Stop Date: 04/15/19 Status: Discontinued bismuth subsalicylate 262 mg oral tablet 524 mg = 2 tab, CHEW, QID, PRN for dyspepsia, # 12 tab, 0 Refill(s) Start Date: 04/14/19 Stop Date: 04/14/19 Status: Discontinued FLUoxetine 10 mg, 1 cap, Route: PO, Drug form: CAP, Daily, Dosing Weight 96.818, kg, Start date: 04/15/19 9:00:00 CDT, Duration: 30 day, Stop date: 05/14/19 9:00:00 CDT Notes: (Same as: Prozac) Start Date: 04/15/19 Stop Date: 04/15/19 Status: Discontinued FLUoxetine 10 mg, PO, Daily, 0 Refill(s) Start Date: 04/14/19 Status: Ordered GI cocktail (aluminum hydroxide/magnesium hydroxide/lidocaine/simethicone) 30 ml, Route: PO, Drug Form: SUSP, Dosing Weight 96.818, kg, Q6H, PRN, Routine, Start date: 04/14/19 17:20:00 CDT, Duration: 30 day, Stop date: 05/14/19 17:19:0 0 CDT, abdominal pain Start Date: 04/14/19 Stop Date: 04/14/19 Status: Deleted GI cocktail WITHOUT lidocaine (aluminum hydroxide/magnesium hydroxide/simethicon e) 30 ml, Route: PO, Drug Form: SUSP, Dosing Weight 96.818, kg, ONCE, Routine, Star t date: 04/14/19 14:17:00 CDT, Stop date: 04/14/19 14:17:00 CDT Notes: (aluminum hydroxide-magnesium hyd-simethicone 279-085-34ly/5ml 30 ml ud S US) Start Date: 04/14/19 Stop Date: 04/14/19 Status: Completed Lactated Ringers IV 1,000 mL 1,000 mL, Rate: 100 ml/hr, Infuse over: 10 hr, Route: IV, Dosing Weight 96.818 k g, Total Volume: 1,000, Start date: 04/14/19 4:50:00 CDT, Duration: 30 day, Stop date: 05/14/19 4:49:00 CDT, 2.05, m2 Start Date: 04/14/19 Stop Date: 04/15/19 Status: Discontinued metroNIDAZOLE 500 mg = 1 tab, PO, BID, # 14 tab, 0 Refill(s) Start Date: 04/14/19 Stop Date: 04/14/19 Status: Discontinued morphine Sulfate 2 mg, 1 mL, Route: IV, Drug form: SOLN, Q4H, Dosing Weight 96.818, kg, PRN Pain Score 7-10, Start date: 04/14/19 4:53:00 CDT, Duration: 30 day, Stop date: 05/14 4:52:00 CDT Start Date: 04/14/19 Stop Date: 04/15/19 Status: Discontinued omeprazole 40 mg, Route: PO, Daily, Dosing Weight 96.818, kg, Start date: 04/15/19 9:00:00 CDT, Duration: 30 day, Stop date: 05/14/19 9:00:00 CDT Start Date: 04/15/19 Stop Date: 04/14/19 Status: Deleted omeprazole 40 mg, PO, Daily, 0 Refill(s) Start Date: 04/14/19 Stop Date: 04/15/19 Status: Discontinued omeprazole 40 mg oral delayed release capsule 40 mg, PO, Daily, # 30 cap, 0 Refill(s), [facility] [id number] Start Date: 04/15/19 Status: Ordered ondansetron 4 mg, 2 mL, Route: IVP, Drug form: INJ, ONCE, Dosing Weight 96.818, kg, Priority : STAT, Start date: 04/14/19 2:48:00 CDT, Stop date: 04/14/19 2:48:00 CDT Notes: (Same as: Donta) MEDICATION WASTE Product Size: 4 mgProduct Was george: ___ mg Start Date: 04/14/19 Stop Date: 04/14/19 Status: Completed pantoprazole 40 mg, Route: IVP, ONCE, Dosing Weight 96.818, kg, Priority: STAT, Start date: 0 04/14/19 1:57:00 CDT, Stop date: 04/14/19 1:57:00 CDT Start Date: 04/14/19 Stop Date: 04/14/19 Status: Discontinued Protonix 80 mg, Route: IVP, ONCE, Dosing Weight 96.818, kg, Priority: STAT, Start date: 0 04/14/19 2:14:00 CDT, Stop date: 04/14/19 2:14:00 CDT Start Date: 04/14/19 Stop Date: 04/14/19 Status: Completed Protonix 40 mg, 1 pkt, Route: PO, Drug form: GRAN/REC, Q12H, Dosing Weight 96.818, kg, St art date: 04/14/19 16:50:00 CDT, Duration: 30 day, Stop date: 05/14/19 9:00:00 C DT Notes: Same as: Protonix Mix in 5 mL apple juice or applesauce for oral & 10mL apple juice for NG tube Start Date: 04/14/19 Stop Date: 04/15/19 Status: Discontinued Reglan 10 mg, 2 mL, Route: IVP, Drug form: INJ, Q6H, Dosing Weight 96.818, kg, PRN Naus ea & Vomiting, Start date: 04/14/19 17:20:00 CDT, Duration: 30 day, Stop date: 05/14/19 17:19:00 CDT Notes: (Same as: Reglan) Start Date: 04/14/19 Stop Date: 04/15/19 Status: Discontinued Saline Flush 0.9% 10 ml, Route: IVP, Drug Form: INJ, Dosing Weight 96.818, kg, PRN, PRN Line Flush , Start date: 04/14/19 4:50:00 CDT, Duration: 30 day, Stop date: 05/14/19 4:49:0 0 CDT Notes: (Same as: BD Posiflush) Start Date: 04/14/19 Stop Date: 04/15/19 Status: Discontinued Geno 13.5 mg intrauteral device 13.5 mg = 1 ea, Intrauteral, ONCE, 0 Refill(s) Start Date: 04/14/19 Status: Ordered Sodium Chloride 0.9% (Bolus) IV 1,000 mL, 1000 ml/hr, Infuse Over: 1 hr, Route: IV, 1,000, Drug form: INJ, ONCE, Priority: STAT, Dosing Weight 96.818 kg, Start date: 04/14/19 2:48:00 CDT, Stop date: 04/14/19 2:48:00 CDT Start Date: 04/14/19 Stop Date: 04/14/19 Status: Completed Sodium Chloride 0.9% IV 1,000 mL 1,000 mL, Rate: 25 ml/hr, Infuse over: 40 hr, Route: IV, Dosing Weight 96.818 kg , Total Volume: 1,000, Start date: 04/14/19 9:22:00 CDT, Duration: 1 day, Stop d ate: 04/15/19 9:21:00 CDT, 2.05, m2 Start Date: 04/14/19 Stop Date: 04/14/19 Status: Discontinued tetracycline 500 mg oral capsule 500 mg = 1 cap, PO, Q6H, # 28 cap, 0 Refill(s) Start Date: 04/14/19 Stop Date: 04/14/19 Status: Discontinued Xylocaine Viscous 2% mucous membrane solution 15 mL, Route: PO, Q6H, Drug form: SOLN, PRN Other -See Comment, Start date: 03/24 02/08 17:24:00 CDT, Duration: 30 day, Stop date: 05/14/19 17:23:00 CDT Notes: (Same as: Xylocaine) Start Date: 04/14/19 Stop Date: 04/15/19 Status: Discontinued Zofran 4 mg, 2 mL, Route: IVP, Drug form: INJ, Q6H, Dosing Weight 96.818, kg, PRN Nause a, Start date: 04/14/19 9:38:00 CDT, Duration: 30 day, Stop date: 05/14/19 9:37: 00 CDT Notes: (Same as: Zofran) MEDICATION WASTE Product Size: 4 mgProduct Was george: ___ mg Start Date: 04/14/19 Stop Date: 04/15/19 Status: Discontinued Zofran 4 mg, PO, TID, 0 Refill(s) Start Date: 04/14/19 Status: Ordered Results 1 2 3 Most recent to oldest [Reference Range]: 4.5 K/CMM (04/14/19 3:57 AM) Neutrophils # [1.5-8.1 K/CMM] 1.9 K/CMM (04/14/19 3:57 AM) Lymphocytes # [1.0-5.5 K/CMM] 0.4 K/CMM (04/14/19 3:57 AM) Monocytes # [0.0-0.8 K/CMM] 0.1 K/CMM (04/14/19 3:57 AM) Eosinophils # [0.0-0.5 K/CMM] 0.1 K/CMM (04/14/19 3:57 AM) Basophils # [0.0-0.2 K/CMM] 95 mL/min/1.73m2 1 *NA* (04/14/19 3:57 AM) eGFR A POS *Unknown* (04/14/19 3:57 AM) ABO/Rh 0.8 (04/14/19 3:57 AM) A/G Ratio [0.7-1.6] Negative (04/14/19 3:57 AM) Antibody Scrn 3.1 g/dL *LOW* (04/14/19 3:57 AM) Albumin Lvl [3.5-5.0 g/dL] 62 unit/L (04/14/19 3:57 AM) Alk Phos [39-136 unit/L] 42 unit/L (04/14/19 3:57 AM) ALT [0-65 unit/L] 12.5 mEq/L (04/14/19 3:57 AM) AGAP [10.0-20.0 mEq/L] 46 unit/L *HI* (04/14/19 3:57 AM) AST [0-37 unit/L] 16 (04/14/19 3:57 AM) B/C Ratio [6-25] 0.9 % (04/14/19 3:57 AM) Basophils [0.0-1.0 %] 14 mg/dL (04/14/19 3:57 AM) BUN [7-22 mg/dL] 8.6 mg/dL (04/14/19 3:57 AM) Calcium Lvl [8.5-10.5 mg/dL] 111 mEq/L *HI* (04/14/19 3:57 AM) Chloride Lvl [95-109 mEq/L] 22 mEq/L *LOW* (04/14/19 3:57 AM) CO2 [24-32 mEq/L] 0.85 mg/dL (04/14/19 3:57 AM) Creatinine Lvl [0.50-1.40 mg/dL] 1.6 % (04/14/19 3:57 AM) Eosinophils [0.0-4.0 %] 3.7 g/dL (04/14/19 3:57 AM) Globulin [2.7-4.2 g/dL] 113 mg/dL *HI* (04/14/19 3:57 AM) Glucose Lvl [70-99 mg/dL] 40.8 % (04/15/19 6:16 AM) 40.1 % (04/14/19 8:48 PM) 42.3 % (04/14/19 12:26 PM) Hct [36.0-48.0 %] 13.8 g/dL (04/15/19 6:16 AM) 13.6 g/dL (04/14/19 8:48 PM) 14.2 g/dL (04/14/19 12:26 PM) Hgb [12.0-16.0 g/dL] 0.97 (04/14/19 4:56 AM) INR [0.85-1.17] 4.5 mEq/L (04/14/19 3:57 AM) Potassium Lvl [3.5-5.1 mEq/L] 142 unit/L (04/14/19 3:57 AM) Lipase Lvl [73-393 unit/L] 27.6 % (04/14/19 3:57 AM) Lymphocytes [20.0-40.0 %] 30.5 pg (04/14/19 3:57 AM) MCH [27.0-31.0 pg] 34.1 g/dL (04/14/19 3:57 AM) MCHC [32.0-36.0 g/dL] 89.4 fL (04/14/19 3:57 AM) MCV [80.0-98.0 fL] 5.8 % (04/14/19 3:57 AM) Monocytes [2.0-12.0 %] 8.8 fL (04/14/19 3:57 AM) MPV [7.4-10.4 fL] 141 mEq/L (04/14/19 3:57 AM) Sodium Lvl [135-145 mEq/L] 232 K/CMM (04/14/19 3:57 AM) Platelet [133-450 K/CMM] 64.1 % (04/14/19 3:57 AM) Segs [45.0-75.0 %] 6.8 g/dL (04/14/19 3:57 AM) Total Protein [6.4-8.4 g/dL] 12.7 seconds (04/14/19 4:56 AM) PT [12.0-14.7 seconds] 25.8 seconds (04/14/19 4:56 AM) PTT [22.9-35.8 seconds] 4.70 M/CMM (04/14/19 3:57 AM) RBC [4.20-5.40 M/CMM] 12.7 % (04/14/19 3:57 AM) RDW [11.5-14.5 %] Negative *NA* (04/14/19 3:57 AM) S Preg [Negative] 0.5 mg/dL (04/14/19 3:57 AM) Bili Total [0.2-1.3 mg/dL] Negative *NA* (04/14/19 3:57 AM) UA Bili [Negative] Negative (04/14/19 3:57 AM) UA Blood [Negative] Occasional /HPF *NA* (04/14/19 3:57 AM) UA CaOx Paola [None Seen /HPF] Karen *NA* (04/14/19 3:57 AM) UA Color Negative mg/dL *NA* (04/14/19 3:57 AM) UA Glucose [Negative mg/dL] 3 /LPF *HI* (04/14/19 3:57 AM) UA Hyal Cast [0-2 /LPF] Negative mg/dL *NA* (04/14/19 3:57 AM) UA Ketones [Negative mg/dL] Trace *ABN* (04/14/19 3:57 AM) UA Leuk Est [Negative] Many /LPF *ABN* (04/14/19 3:57 AM) UA Mucus [None Seen /LPF] Negative (04/14/19 3:57 AM) UA Nitrite [Negative] 5.0 (04/14/19 3:57 AM) UA pH [5.0-8.0] Negative mg/dL (04/14/19 3:57 AM) UA Protein [Negative mg/dL] 3 /HPF *HI* (04/14/19 3:57 AM) UA RBC [0-2 /HPF] 1.030 (04/14/19 3:57 AM) UA Spec Grav [<=1.030] Many /LPF *ABN* (04/14/19 3:57 AM) UA Sq Epi [Few /LPF] Marked *ABN* (04/14/19 3:57 AM) UA Turbidity [Clear] <=1.0 mg/dL *NA* (04/14/19 3:57 AM) UA Urobilinogen [0.1-1.0 mg/dL] 4 /HPF (04/14/19 3:57 AM) UA WBC [0-5 /HPF] 7.0 K/CMM (04/14/19 3:57 AM) WBC [3.7-10.4 K/CMM] 1Result Comment: The eGFR is calculated using the [...] from the National Kidney Disease Education Program ( NKDEP) which additionally recommends that when the eGFR is used in patients with extremes of body mass index for purposes of drug dosing, the eGFR should be mul tiplied by the estimated BMI. Immunizations No data available for this section Procedures Procedure Date Related Diagnosis Body Site Status Procedure1 Completed 1PCOS Social History Social History Type Response Smoking Status Never smoker; Exposure to T obacco Smoke None; Cigarette Smoking Last 365 Days No; Reg Smoking Cessation Counseli ng No entered on: 04/14/19 Assessment and Plan Extracted from: Title: Clinical Document Author: Pushpa Nunez Date: 04/15/19 Tabitha Progress Note - Daily [facility] Completed: Monday, APRIL 15, 2019, 09:23 by Pushpa Nunez RM: [address] [id number] (: 1990) F Attending: Marah Pedroza MDPhone: Service: Internal Medicine Reason for Admission: GI BLEED Working DRG: Code status: Full CodeCurrent diet: Isolation: No Isolation/Standard Precautions Allergies: HYDROcodone, penicillins(Hydrocodone) SUBJECTIVE nausea+ some mild upper abdominal discomfort no further hematemesis or melena, no hematochezia BM this AM, normal eating full liquid diet ok no fever/chills no vomiting OBJECTIVE 24hr Labs 04/15 0616 Hgb13.8 Hct40.8 04/14 2048 Hgb13.6 Hct40.1 04/14 1226 Hgb14.2 Hct42.3 Acevedo still necessary (Yes/No): Line still necessary (Yes/No): VitalsTmp(F)[id number] 04/15 07:[id number]--- 04/14 23:0997.814349/467845--- 04/14 16:0397.9---109/7316------ 04/14 10:52----[id number]--- 04/14 10:37----[id number]--- 24 Hr Tmax: 98.3F (36.83c) at 04/15 07:4 3Vital Signs are the last 5 in the past 48 hours. DateWt(kg)Wt(lb)Ht(cm)Ht(in)Method 04/14 (initial) 96.82 213.00Estimated 49.86 59.00Stated I&ORecordInOutBal 03/2324hr Tot 1383 0 1383 03/2224hr Tot 1000 0 1000 Medications (14) Active Scheduled Meds (2): 04/15/19 FLUoxetine 10 mg PO Daily 04/14/19 pantoprazole (Protonix) 40 mg P O Q12H Unscheduled Meds: None PRN Meds (6): 04/14/19 Al hydroxide/Mg hydroxide/simet hicone 30 mL PO Q6H 04/14/19 lidocaine topical (Xylocaine Vi scous 2% mucous membrane solution) 15 mL PO Q6H 04/14/19 metoclopramide (Reglan) 10 mg I GENERATOR OPERATOR Q6H 04/14/19 morphine Sulfate 2 mg IV [...] ml/hr 04/14/19 (Completed) ondansetron 4 mg I GENERATOR OPERATOR ONCE 04/14/19 (Discontinued) pantoprazole 40 mg IVP [...] I have examined the patient with the FUNERAL HOME ASSISTANT and confirmed the essential components of history, physical examination, diagnosis and treatment plan. I agree with the patient's care as documented by the FUNERAL HOME ASSISTANT, and amended as needed herein by me. Lalo Renteria MD GI Attending Extracted from: Title: GI Consult * Author: Lalo Renteria MD [...] I have examined the patient with the FUNERAL HOME ASSISTANT and confirmed the essential components of history, physical examination, diagnosis and treatment plan. I agree with the patient's care as documented by the FUNERAL HOME ASSISTANT, and amended as needed herein by me. Lalo Renteria MD GI Attending Extracted from: Title: History and Physical Author: Dayna Klein MD Date: 04/14/19 28-year-old female with recently diagnos ed H. pylori who presented to the ED with hematemesis. Hematemesis - continue PPI IV q12h - GI consult - trend H/H - NPO, IVF H pylori - hold treatment until hematemesis is fu lly evaluated SCD anticipate 2-3 midnights
--- OUTSIDE RECORDS SUMMARY | 2020-06-26 20:13 | XMS REPORT | Continuity of Care Document ---
Author Author [facility] t Organization [facility] Address [address] [place] [address] Phone Unavailable Care Team Providers Care Mat Weaver Name Role Phone NO, PCP PCP Unavailable Luann Garcia Attphys Marah Pedroza Attphys Graham Amos Attphys Marah Pedroza Admphys Payers Payer Name Policy Type Policy Number Effective Date Expiration Date Annel Coelho [facility] [id number] 2017 00:00:00 TANJA hood yue [facility] Problems Condition Name Condition Details Condition Category Status Onset Date Resolution Date Last Treatment Date Treating Clinician Comments Source R42 DIZZINESS AND GIDDINESS, H81.90 UNSP R42 DIZZINESS AND GIDDINESS, H81.90 UNSP Active 07/20/2019 [facility] tive 2019-07-20 00:00:00 2019-08-01 19:21:00 Reji Duran GI BLEED GI B LEED Active 04/13/2019 [facility] Active 2019-04-13 00:00:00 2019-04-15 14:37:00 Margo Duran VOMITING BLOOD VOMI TING BLOOD Active 04/13/2019 [facility] Active 2019-04-13 00:00:00 2019-04-14 02:15:00 Margo Duran PELVIC PAIN PELV IC PAIN Active 05/03/2017 [facility] Active 2017-05-03 00:00:00 2017-05-03 10:49:00 Margo Duran 789.0 - ABDOMINAL PAIN 789. 0 - ABDOMINAL PAIN Active 09/13/2012 [facility] Active 2012-09-13 00:01:00 2012-09-14 12:29:00 Margo Duran Hypertensive disorder, systemic arterial (disorder) Hypertensive disorder, systemic arterial (disorder) Resolved Problem 08/03/2019 [facility] Resolved 2019-08-03 22:37:14 [facility] GASTROINTEST[facility] HEMORRHAGE, UNSPECIFIED GASTROINTESTINAL HEMORRHAGE, UNSPECIFIED Active [facility] Act karie 2019-04-15 14:37:00 Margo neely Left lower quadrant pain Left lower quadrant pain 05/03/2017 05/06/2017 [facility] Problem 2017-05-03 05:00:00 2016 00:33:02 2017-05-06 00:33:02 [facility] Allergies, Adverse Reactions, Alerts Allergy Name Allergy Type Status Severity Reaction(s) Onset Date Inacti ve Date Treating Clinician Comments Source Penicillin Allergy to Substance Active [facility] 2018-08-24 00:00:00 [facility] penicillins penicillins Active [facility] HYDROcodone HYDROcodone Active [facility] Social History Smoking Status Start Date Stop Date Source Social History [facility] Medications Ordered Medication Name Filled Medication Name Start Date Stop Da te Current Medication? Ordering Clinician Indication Dosage Frequency Signature (SIG) Comments Components Source omeprazole 40 mg oral delayed release capsule 2019-04-15 18:29:0 0 Yes 40 mg, PO, Daily, # 30 cap, 0 Refill(s), Pharmacy: [facility] [id number] [facility] Omeprazole 2019-04-15 14:00:00 No 40 mg, Route: PO, Daily, Dosing Weight 96.818, kg, Start date: 04/15/19 9:00:00 CDT, Duration: 30 day, Stop date: 05/14/19 9:00:00 CDT [facility] Fluoxetine 2019-04-15 14:00:00 No Notes: (S amaya as: Prozac) [facility] Xylocaine Viscous 2% mucous membrane solution 2019-04-14 22:24:0 0 No Notes: (Same as: Xylocaine) [facility] hydroxide/Mg hydroxide/simethicone 2019-04-14 22:23:00 N o Notes: (aluminum hydroxide-magnesium hyd-simethicone [phone]/5ml 30 ml ud ANA) [facility] Reg[facility] 2019-04-14 22:20:00 No Notes: (Same as: Reglan) [facility] GI cocktail (aluminum hydroxide/magnesium hydroxide/lidocain e/simethicone) 2019-04-14 22:20:00 No 30 ml, Route: PO, Drug Form: SUSP, Dosing Weight 96.818, kg, Q6H, PRN, Routine, Start date: 04/14/19 17:20:00 CDT, Duration: 30 day, Stop date: 05/14/19 17:19:00 CDT, abdominal pain Margo Duran pantoprazole 2019-04-14 21:50:00 No Notes: Same as: Protonix Mix in 5 mL apple juice or applesauce for oral & 10mL apple juice for NG tube [facility] [place] Aluminum Hydroxide / Magnesium Hydroxide / Simethicone 2019-04-14 19:17:00 No Notes: (aluminu m hydroxide-magnesium hyd-simethicone [phone]/5ml 30 ml ud ANA) [facility] Omeprazole 2019-04-14 16:44:00 No 40 mg, PO , Daily, 0 Refill(s) Margo Duran bismuth subsalicylate 262 mg oral tablet 2019-04-14 16:44:00 No 524 mg = 2 tab, CHEW, QID, PRN for dyspepsia, # 12 tab, 0 Refill(s) [facility] Zofran 2019-04-14 16:44:00 Yes 4 mg, PO, TID , 0 Refill(s) Margo Duran Metronidazole 2019-04-14 16:44:00 No 500 mg = 1 tab, PO, BID, # 14 tab, 0 Refill(s) [facility] Levonorgestrel 0.888318 MG/HR Drug Implant [Geno] 2019-03 16:44:00 Yes 13.5 mg = 1 ea, Intrauteral, ONCE, 0 Ref ill(s) [facility] Tetracycline 500 MG Oral Capsule 2019-04-14 16:44:00 No 500 mg = 1 cap, PO, Q6H, # 28 cap, 0 Refill(s) [facility] [place] Fluoxetine 2019-04-14 16:44:00 Yes 1 0 mg, PO, Daily, 0 Refill(s) [facility] Zofran 2019-04-14 14:38:00 No Notes: (Same as: Donta) MEDICATION WASTE Product Size: 4 mg Product Wasted: ___ mg [facility] Sodium Chloride 0.9% IV 1,000 mL 2019-04-14 14:22:00 No 1,000 mL, Rate: 25 ml/hr, Infuse over: 40 hr, Route: IV, Dosing Weight 96.818 kg, Total Volume: 1,000, Start date: 04/14/19 9:22:00 CDT, Duration: 1 day, Stop date: 04/15/19 9:21:00 CDT, 2.05, m2 [facility] Morphine 2019-04-14 09:53:00 No 2 mg, 1 mL, Route: IV, Drug form: SOLN, Q4H, Dosing Weight 96.818, kg, PRN Pain Score 7-10, Start date: 04/14/19 4:53:00 CDT, Duration: 30 day, Stop date: 05/14/19 4:52:00 CDT [facility] Saline Flush 0.9% 2019-04-14 09:50:00 No Notes: (Same as: BD Posiflush) [facility] Lactated Ringers IV 1,000 mL 2019-04-14 09:50:00 No 1,000 mL, Rate: 100 ml/hr, Infuse over: 10 hr, Route: IV, Dosing Weight 96.818 kg, Total Volume: 1,000, Start date: 04/14/19 4:50:00 CDT, Duration: 30 day, Stop date: 05/14/19 4:49:00 CDT, 2.05, m2 [facility] Ondansetron 2019-04-14 07:48:00 No Notes: (Same as: Donta) MEDICATION WASTE Product Size: 4 mg Product Wasted: ___ mg [facility] Sodium Chloride 0.9% (Bolus) IV 2019-04-14 07:48:00 No 1,000 mL, 1000 ml/hr, Infuse Over: 1 hr, Route: IV, 1,000, Drug form: INJ, ONCE, Priority: STAT, Dosing Weight 96.818 kg, Start date: 04/14/19 2:48:00 CDT, Stop date: 04/14/19 2:48:00 CDT [facility] Protonix 2019-04-14 07:14:00 No 80 mg, Route: IVP, ONCE, Dosing Weight 96.818, kg, Priority: STAT, Start date: 04/14/19 2:14:00 CDT, Stop date: 04/14/19 2:14:00 CDT [facility] pantoprazole 2019-04-14 06:57:00 No 40 mg, Route: IVP, ONCE, Dosing Weight 96.818, kg, Priority: STAT, Start date: 04/14/19 1:57:00 CDT, Stop date: 04/14/19 1:57:00 CDT [facility] Zofran 2017-05-03 17:57:00 No 4 mg, Route: PO, Drug form: TABDIS, ONCE, Dosing Weight 86.364, kg, Priority: STAT, Start date: 05/03/17 12:57:00 CDT, Stop date: 05/03/17 12:57:00 CDT [facility] Ondansetron 4 MG Oral Tablet [Zofran] 2017-05-03 17:56:00 Y es 4 mg = 1 tab, PO, BID, X 5 day, # 10 tab, 0 Refill(s) [facility] Acetaminophen 300 MG / Codeine Phosphate 30 MG Oral Tablet [Tylenol with Codeine #3] 2017-05-03 17:56:00 No 1 - 2 tab, PO, Q4H, PRN Pain, X 1 day, # 10 tab, 0 Refill(s) [facility] Acetaminophen 300 MG / Codeine Phosphate 30 MG Oral Tablet [Tylenol with Codeine #3] 2017-05-03 16:17:00 No 1 tab, Route: PO, Drug Form: TAB, Dosing Weight 86.364, kg, ONCE, STAT, Start date: 05/03/17 11:17:00 CDT, Stop date: 05/03/17 11:17:00 CDT [facility] Acetaminophen 300 MG / Codeine Phosphate 30 MG Oral Tablet [Tylenol with Codeine #3] 2017-05-03 15:37:00 No 1 tab, Route: PO, Drug Form: TAB, Dosing Weight 86.364, kg, ONCE, STAT, Start date: 05/03/17 10:37:00 CDT, Stop date: 05/03/17 10:37:00 CDT [facility] Vital Signs Vital Name Observation Time Observation Value Comments Source Respitory Rate 2019-04-15 12:43:00 [facility] [place] Systolic (mm Hg) 2019-04-15 12:43:00 [facility] [place] Diastolic (mm Hg) 2019-04-15 12:43:00 [facility] Heart Rate 2019-04-15 12:43:00 [facility] Temperature Oral (F) 2019-04-15 12:43:00 98.3 F [facility] Systolic (mm Hg) 2019-04-15 04:09:00 [facility] Diastolic (mm Hg) 2019-04-15 04:09:00 [facility] Respitory Rate 2019-04-15 04:09:00 [facility] [place] Temperature Oral (F) 2019-04-15 04:09:00 97.9 F [facility] Heart Rate 2019-04-15 04:09:00 [facility] Systolic (mm Hg) 2019-04-14 21:03:00 [facility] [place] Diastolic (mm Hg) 2019-04-14 21:03:00 [facility] Respitory Rate 2019-04-14 21:03:00 [facility] [place] Temperature Oral (F) 2019-04-14 21:03:00 97.9 F [facility] Heart Rate 2019-04-14 14:23:00 [facility] BMI Calculated 2019-04-14 11:10:00 [facility] [place] Height 2019-04-14 11:10:00 149.86 cm [facility] Weight 2019-04-14 11:10:00 [facility] Weight 2019-04-14 06:27:00 [facility] BMI Calculated 2019-04-14 06:27:00 [facility] Height 2019-04-14 06:27:00 149.86 cm [facility] Systolic (mm Hg) 2017-05-03 18:41:00 [facility] [place] Diastolic (mm Hg) 2017-05-03 18:41:00 [facility] [place] Temperature Oral (F) 2017-05-03 18:41:00 98.0 F [facility] Respitory Rate 2017-05-03 18:41:00 [facility] Heart Rate 2017-05-03 18:41:00 [facility] Height 2017-05-03 15:09:00 149.86 cm [facility] BMI Calculated 2017-05-03 15:09:00 Sara sampson [place] Weight 2017-05-03 15:09:00 [facility] Respitory Rate 2017-05-03 15:09:00 Sara sampson [place] Heart Rate 2017-05-03 15:09:00 Margo [facility] Temperature Oral (F) 2017-05-03 15:09:00 98.4 F [facility] Systolic (mm Hg) 2017-05-03 15:09:00 Yury riafiorella [place] Diastolic (mm Hg) 2017-05-03 15:09:00 [facility] Procedures Procedure Date / Time Performed Performing Clinician Sour e Procedure<sup>1</sup> [facility] En[facility]ters Start Date/Time End Date/Time En[facility] ID Source 2019-08-01 19:12:00 2019-08-01 23:59:00 Outpatient Kathryn Sethi [facility] [id number] 2019-08-01 19:12:00 2019-08-01 19:12:00 Outpatient [id number] 2019-04-14 01:24:34 2019-04-15 14:03:00 Outpatient Margoth Pedroza [facility] [id number] 2019-04-14 04:56:00 2019-04-14 04:56:00 Outpatient E [facility] MED [id number] 2018-08-24 05:37:00 2018-08-24 07:50:00 Departed Emergency Room [facility] [id number] [facility] 2017-05-03 09:59:00 2017-05-03 13:44:00 Outpatient Dennise Amos [facility] [id number] Results Test Description Test Time Test Comments Results Result Comments Source HEMATOLOGY 2019-04-15 11:16:00 13.8 [facility] [place] HEMATOLOGY 2019-04-15 11:16:00 40.8 [facility] HEMATOLOGY 2019-04-15 01:48:00 13.6 [facility] [place] HEMATOLOGY 2019-04-15 01:48:00 40.1 [facility] [place] HEMATOLOGY 2019-04-14 17:26:00 14.2 [facility] HEMATOLOGY 2019-04-14 17:26:00 42.3 [facility] HEMATOLOGY 2019-04-14 09:56:00 Test Item PTT (test code = PTT) 25.8 s 22.9-35.8 [facility]vrikxnHBPPPMKDTU5162-45-81 09:56:00* Test Item Value Reference Range Interpretation Comments PT (test code = PT) 12.7 s 12.0-14.7 [facility] CenterZnmggotFZCDESCQQJ3802-80-98 09:56:00* Test Item Value Reference Range Interpretation Comments INR (test code = INR) 0.97 1 0.85-1.17 [facility] BANK [id number] 08:57:00Negative (04/14/19 3:57 AM) [facility] [id number] 08:57:81993Mddzbezo HermannCHEM PANEL 2019-04-14 08:57:006.8[facility] [id number] 08:57:0095[facility]ann[facility] CDJHG7411-76-19 08:57:0042[facility]ann[facility] [id number] 08:57:0046[facility]ann[facility] HVNDV9600-29-94 08:57:0062[facility]ann[facility] NEMVZ5357-10-96 08:57:008.6[facility]annCHE[facility] UCHEL0415-00-54 08:57:004.5 [facility]ann[facility] [id number] 08:57:29312Jenyhaig HermannCHEM PANEL 2019-04-14 08:57:0022[facility]annCHEM [id number] 08:57:11761Pqmjqver HermannCHEM [id number] 08:57:0014[facility]annCHE[facility] [id number] 08:57:000.85[facility]annCHE[facility] NMQCW7177-11-27 08:57:53741Txalfxuq HermannCHEM QYEUB1025-29-68 08:57:000.5[facility]annCHE[facility] EUYIK6809-77-39 08:57:003.1 [facility] [id number] 08:57:003.7[facility]annCHEM PANEL 2019-04-14 08:57:00* Test Item Value Reference Range Interpretation Comments A/G Ratio (test code = A/G Ratio) 0.8 1 0.7-1.6 [facility] [id number] 08:57:00* Test Item Value Reference Range Interpretation Comments B/C Ratio (test code = B/C Ratio) 16 1 6-25 [facility]annCHE[facility] [id number] 08:57:0012.5[facility] HermannENDOCRINOLOGY 2019-04-14 08:57:00Negative *NA*(04/14/19 3:57 AM)[facility]annHEMATOLOGY 2019-04-14 08:57:004.70[facility] CflscmqOYJNRNIPYV1485-18-09 08:57:007.0[facility] RgewcpwPKGYHLCPMX3303-14-62 08:57:0089.4[facility] IkymgelPJQZJNXYWO5900-02-25 08:57:00* Test Item Value Reference Range Interpretation Comments MCH (test code = MCH) 30.5 pg 27.0-31.0 [facility] MnjlrnzXMJTJGWWAC1775-65-45 08:57:0034.1[facility]annHEMATOLOGY 2019-04-14 08:57:008.8[facility] JxxutqgOVJWPGQWRL1748-86-40 08:57:10758Jadmoaxt DdguvplHTDLTHENLL9978-64-78 08:57:0012.7[facility] EjubpnlIUKDGGCGGG2300-55-82 08:57:004.5[facility] BuolwncFNKLEKMALQ7186-21-02 08:57:001.9[facility] ZZGXXYZWEX3093-40-53 08:57:000.4[facility] DjayrizTEJAIGOOSR4361-92-87 08:57:000.1 [facility] ItfdnrtDOCBFAMSNI9431-20-37 08:57:000.1[facility] HermannHEMATOLOGY 2019-04-14 08:57:005.8[facility] VfzqrtpVFFZSOJFTG7967-40-50 08:57:000.9[facility] FrffaeaFHDBHQKCMJ3233-63-38 08:57:001.6[facility] AnhtkqiSGJJXSMGYQ9068-17-98 08:57:0064.1[facility] GhkuubyCGPVWIBVZA6691-54-74 08:57:0027.6[facility] URINE AND ENHNF4893-04-57 08:57:003[facility]ann[facility]INE AND HVIPS5540-79-26 08:57:003[facility]ann[facility] AND SSZRD3705-16-36 08:57:004[facility] URINE AND [id number] 08:57:00Negative *NA*(04/14/19 3:57 AM)[facility] URINE AND [id number] 08:57:00Negative (04/14/19 3:57 AM)[facility] URINE AND [id number] 08:57:00Trace *ABN*(04/14/19 3:57 AM)[facility] URINE AND [id number] 08:57:00Negative (04/14/19 3:57 AM)[facility] URINE AND [id number] 08:57:00Marked *ABN*(04/14/19 3:57 AM)[facility] URINE AND [id number] 08:57:00* Test Item Value Reference Range Interpretation Comments UA pH (test code = UA pH) 5.0 1 5.0-8.0 [facility] AND [id number] 08:57:00* Test Item Value Reference Range Interpretation Comments UA Spec Grav (test code = UA Spec Grav) 1.030 1 [facility] [id number] 15:50:001[facility] AND [id number] 15:50:00Yellow *NA*(05/03/17 10:50 AM)[facility] AND [id number] 15:50:00Marked *ABN*(05/03/17 10:50 AM)[facility] [id number] 15:50:001.024[facility] AND [id number] 15:50:00 Negative (05/03/17 10:50 AM)[facility] [id number] 15:50:00 Negative (05/03/17 10:50 AM)[facility] [id number] 15:50:00 Moderate *ABN*(05/03/17 10:50 AM)[facility] [id number] 15:50:001[facility] AND OOGIJ1642-29-39 15:50:0017[facility] URINE AND RQRCA4639-29-71 15:50:005.0[facility]ann[facility] AND ETBNF8818-01-05 15:50:00Negative *NA*(05/03/17 10:50 AM)[facility]ann[facility] [id number] 15:50:00Negative (05/03/17 10:50 AM)[facility]
--- NOTE | 2020-06-26 21:26 | Diagnostic Imaging Report ---
EXAMINATION: CHEST 2 VIEWS INDICATION: ^COUGH FOLLOWING MEAL COMPARISON: None FINDINGS: TUBES and LINES: None. LUNGS: Normal lung volumes. Lungs are clear. No consolidations. PLEURA: No pleural effusion or pneumothorax. HEART AND MEDIASTINUM: The cardiomediastinal silhouette is unremarkable. BONES AND SOFT TISSUES: No acute osseous lesion. Soft tissues are unremarkable. UPPER ABDOMEN: No free air under the diaphragm. IMPRESSION: No acute thoracic radiographic abnormality. Signed by: Hadley Ortiz MD on 06/26/2020 9:22 PM
== END 2020-06-26 21:42 | disposition home or self-care (01) ==
LOC: ER 19:58
DX: R05 Cough (principal); K29.70 Gastritis, unspecified, without bleeding
CPT/HCPCS: 71046; 99283

== ENCOUNTER 2020-09-03 00:16 | Emergency (ER) | payer OTHER ==
[~2020-09-03] VITALS: Ht 149.9 cm; Wt 101.2 kg
--- OUTSIDE RECORDS SUMMARY | 2020-09-03 00:52 | XMS REPORT | Continuity of Care Document ---
Author Author [employer], THERESA SHELDON Organization [employer] Address Unknown Phone Unavailable Care Team Providers Care Program Evaluator Name Role Phone [employer] Information Exchange Unavailable Un available Problems Problem Status Onset Date Classification Date Reported Comments Source R42 DIZZINESS AND GIDDINESS, H81.90 UNSP Active 07/20/2019 [facility] GI BLEED Active 04/13/2019 [facility] VOMITING BLOOD Active 04/13/2019 [facility] Left lower quadrant pain 05/03/2017 05/06/2017 [facility] PELVIC PAIN Active 05/03/2017 [facility] 789.0 - ABDOMINAL PAIN Active 09/13/2012 [facility] Hypertensive disorder, systemic arterial (disorder) Resolved Problem 08/03/2019 [facility] GASTROINTESTINAL HEMORRHAGE, UNSPECIFIED Active [facility] Medications Medication Details Route Status Patient Instructions Ordering Provider Order Date Source omeprazole 40 mg oral delayed release capsule 40 mg, PO, Daily, # 30 cap, 0 Refill(s), Pharmacy: [email or web address] [id number] Active 04/15/2019 [facility] Omeprazole 40 mg, Route: PO, Neville harris, Dosing Weight 96.818, kg, Start date: 04/15/19 9:00:00 CDT, Duration: 30 day, Stop date: 05/14/19 9:00:00 CDT No Longer Active 04/15/2019 [facility] Fluoxetine Notes: (Same as: Pr ozac) Inactive 04/15/2019 [facility] Xylocaine Viscous 2% mucous membrane solution Notes: (Same as: Xylocaine) No Longer Active 04/14/2019 [facility] Al hydroxide/Mg hydroxide/simethicone Notes: (aluminum hydroxide-magnesium hyd-simethicone [phone]/5ml 30 ml ud ANA) No Longer Active 04/14/2019 [facility] Reglan Notes: (Same as: Reglan) No Longer Active 04/14/2019 [facility] GI cocktail (aluminum hydroxide/magnesiu m hydroxide/lidocaine/simethicone) 30 ml, Route: PO, Drug Form: SUSP, Dosin g Weight 96.818, kg, Q6H, PRN, Routine, Start date: 04/14/19 17:20:00 CDT, Duration: 30 day, Stop date: 05/14/19 17:19:00 CDT, abdominal pain Inactive 04/14/2019 [facility] pantoprazole Notes: Same as: P rotonix Mix in 5 mL apple juice or applesauce for oral & 10mL apple juice for NG tube No Longer Active 04/14/2019 [facility] Aluminum Hydroxide / Magnesium Hydroxide / Simethicone Notes: (aluminum hydroxide-magnesium hyd-simethicone [phone]/5ml 30 ml ud ANA) Inactive 04/14/2019 [facility] Omeprazole 40 mg, PO, Daily, 0 Refill(s) No Longer Active 04/14/2019 [facility] bismuth subsalicylate 262 mg oral tablet 524 mg = 2 tab, CHEW, QID, PRN for dyspepsia, # 12 tab, 0 Refill(s) Inactive 04/14/2019 [facility] Zofran 4 mg, PO, TID, 0 Refill (s) Active 04/14/2019 [facility] Metronidazole 500 mg = 1 tab, PO, BID, # 14 tab, 0 Refill(s) Inactive 04/14/2019 [facility] Levonorgestrel 0.987981 MG/HR Drug Implant [Geno] 13.5 mg = 1 ea, Intrauteral, ONCE, 0 Refill(s) Active 04/14/2019 [facility] Tetracycline 500 MG Oral Capsule 500 mg = 1 cap, PO, Q6H, # 28 cap, 0 Refill(s) Inactive 04/14/2019 [facility] Fluoxetine 10 mg, PO, Daily, 0 Refill(s) Active 04/14/2019 [facility] Zofran Notes: (Same as: Zofran ) MEDICATION WASTE Product Size: 4 mg Product Wasted: ___ mg No Longer Active 04/14/2019 [facility] Sodium Chloride 0.9% IV 1,000 mL 1,000 mL, Rate: 25 ml/hr, Infuse over: 40 hr, Route: IV, Dosing Weight 96.818 kg, Total Volume: 1,000, Start date: 04/14/19 9:22:00 CDT, Duration: 1 day, Stop date: 04/15/19 9:21:00 CDT, 2.05, m2 Inactive 04/14/2019 [facility] Morphine 2 mg, 1 mL, Route: IV , Drug form: SOLN, Q4H, Dosing Weight 96.818, kg, PRN Pain Score 7-10, Start date: 04/14/19 4:53:00 CDT, Duration: 30 day, Stop date: 05/14/19 4:52:00 CDT No Longer Active 04/14/2019 [facility] Saline Flush 0.9% Notes: (Same as: BD Posiflush) No Longer Active 04/14/2019 [facility] Lactated Ringers IV 1,000 mL 1 ,000 mL, Rate: 100 ml/hr, Infuse over: 10 hr, Route: IV, Dosing Weight 96.818 kg, Total Volume: 1,000, Start date: 04/14/19 4:50:00 CDT, Duration: 30 day, Stop date: 05/14/19 4:49:00 CDT, 2.05, m2 No Longer Active 04/14/2019 [facility] Ondansetron Notes: (Same as: Nanette rg) MEDICATION WASTE Product Size: 4 mg Product Wasted: ___ mg Inactive 04/14/2019 [facility] Sodium Chloride 0.9% (Bolus) IV 1,000 mL, 1000 ml/hr, Infuse Over: 1 hr, Route: IV, 1,000, Drug form: INJ, ONCE, Priority: STAT, Dosing Weight 96.818 kg, Start date: 04/14/19 2:48:00 CDT, Stop date: 04/14/19 2:48:00 CDT Inactive 04/14/2019 [facility] Protonix 80 mg, Route: IVP, ON CE, Dosing Weight 96.818, kg, Priority: STAT, Start date: 04/14/19 2:14:00 CDT, Stop date: 04/14/19 2:14:00 CDT Inactive 04/14/2019 [facility] pantoprazole 40 mg, Route: IVP , ONCE, Dosing Weight 96.818, kg, Priority: STAT, Start date: 04/14/19 1:57:00 CDT, Stop date: 04/14/19 1:57:00 CDT Inactive 04/14/2019 [facility] Zofran 4 mg, Route: PO, Drug f orm: TABDIS, ONCE, Dosing Weight 86.364, kg, Priority: STAT, Start date: 05/03/17 12:57:00 CDT, Stop date: 05/03/17 12:57:00 CDT Inactiv e 05/03/2017 [facility] Ondansetron 4 MG Oral Tablet [Zofran] 4 mg = 1 tab, PO, BID, X 5 day, # 10 tab, 0 Refill(s) Active 05/03/2017 [facility] Acetaminophen 300 MG / Codeine Phosphate 30 MG Oral Tablet [Tylenol with Codeine #3] 1 - 2 tab, PO, Q4H, PRN Pain, X 1 day, # 10 tab, 0 Refill(s) No Longer Active 05/03/2017 [facility] Acetaminophen 300 MG / Codeine Phosphate 30 MG Oral Tablet [Tylenol with Codeine #3] 1 tab, Route: PO, Drug Form: TAB, Dosing Weight 86.364, kg, ONCE, STAT, Start date: 05/03/17 11:17:00 CDT, Stop date: 05/03/17 11:17:00 CDT Inactive 05/03/2017 [facility] Acetaminophen 300 MG / Codeine Phosphate 30 MG Oral Tablet [Tylenol with Codeine #3] 1 tab, Route: PO, Drug Form: TAB, Dosing Weight 86.364, kg, ONCE, STAT, Start date: 05/03/17 10:37:00 CDT, Stop date: 05/03/17 10:37:00 CDT Inactive 05/03/2017 [facility] Allergies, Adverse Reactions, Alerts Substance Category Reaction Severity Reaction type Status Date Reported Comments Source penicillins Assertion Hydrocodone Drug allergy Active [facility] HYDROcodone Assertion Drug allergy Active [facility] Immunizations No Data Provided for This Section Results Order Name Results Value Reference Range Date Interpretation Comments Source HEMATOLOGY Hgb 13.8 12.0 - 16.0 04/15/2019 [facility] HEMATOLOGY Hct 40.8 36.0 - 48.0 04/15/2019 [facility] HEMATOLOGY Hgb 13.6 12.0 - 16.0 04/15/2019 [facility] HEMATOLOGY Hct 40.1 36.0 - 48.0 04/15/2019 [facility] HEMATOLOGY Hgb 14.2 12.0 - 16.0 04/14/2019 [facility] HEMATOLOGY Hct 42.3 36.0 - 48.0 04/14/2019 [facility] HEMATOLOGY PTT 25.8 22.9 - 35.8 04/14/2019 [facility] HEMATOLOGY PT 12.7 12.0 - 14.7 04/14/2019 [facility] HEMATOLOGY INR 0.97 0.85 - 1.17 04/14/2019 [facility] BLOOD BANK RESULTS Antibody Scrn Negative (04/14/19 3:57 AM) 04/14/2019 [facility] BLOOD BANK RESULTS ABO/Rh A POS 04/14/2019 [facility] CHEM PANEL Lipase Lvl 142 73 - 393 04/14/2019 [facility] CHEM PANEL Total Protein 6.8 6.4 - 8.4 04/14/2019 [facility] CHEM PANEL eGFR 95 04/14/2019 Result [...] should be multiplied by the estimated BMI. [facility] CHEM PANEL ALT 42 0 - 65 04/14/2019 [facility] CHEM PANEL AST 46 0 - 37 04/14/2019 [facility] CHEM PANEL Alk Phos 62 39 - 136 04/14/2019 [facility] CHEM PANEL Calcium Lvl 8.6 8.5 - 10.5 04/14/2019 [facility] CHEM PANEL Potassium Lvl 4.5 3.5 - 5.1 04/14/2019 [facility] CHEM PANEL Chloride Lvl 111 95 - 109 04/14/2019 [facility] CHEM PANEL CO2 22 24 - 32 04/14/2019 [facility] CHEM PANEL Sodium Lvl 141 135 - 145 04/14/2019 [facility] CHEM PANEL BUN 14 7 - 22 04/14/2019 [facility] CHEM PANEL Creatinine Lvl 0.85 0.50 - 1.40 04/14/2019 [facility] CHEM PANEL Glucose Lvl 113 70 - 99 04/14/2019 [facility] CHEM PANEL Bili Total 0.5 0.2 - 1.3 04/14/2019 [facility] CHEM PANEL Albumin Lvl 3.1 3.5 - 5.0 04/14/2019 [facility] CHEM PANEL Globulin 3.7 2.7 - 4.2 04/14/2019 [facility] CHEM PANEL A/G Ratio 0.8 0.7 - 1.6 04/14/2019 [facility] CHEM PANEL B/C Ratio 16 6 - 25 04/14/2019 [facility] CHEM PANEL AGAP 12.5 10.0 - 20.0 04/14/2019 [facility] ENDOCRINOLOGY S Preg Ne gative *NA* (04/14/19 3:57 AM) Negative 04/14/2019 [facility] HEMATOLOGY RBC 4.70 4.20 - 5.40 04/14/2019 [facility] HEMATOLOGY WBC 7.0 3.7 - 10.4 04/14/2019 [facility] HEMATOLOGY MCV 89.4 80.0 - 98.0 04/14/2019 [facility] MCH 30.5 27.0 - 31.0 04/14/2019 [facility] MCHC 34.1 32.0 - 36.0 04/14/2019 [facility] MPV 8.8 7.4 - 10.4 04/14/2019 [facility] Platelet 232 133 - 450 04/14/2019 [facility] HEMATOLOGY RDW 12.7 11.5 - 14.5 04/14/2019 [facility] HEMATOLOGY Neutrophils # 4.5 1.5 - 8.1 04/14/2019 [facility] HEMATOLOGY Lymphocytes # 1.9 1.0 - 5.5 04/14/2019 [facility] HEMATOLOGY Monocytes # 0.4 0.0 - 0.8 04/14/2019 [facility] HEMATOLOGY Basophils # 0.1 0.0 - 0.2 04/14/2019 [facility] HEMATOLOGY Eosinophils # 0.1 0.0 - 0.5 04/14/2019 [facility] HEMATOLOGY Monocytes 5.8 2.0 - 12.0 04/14/2019 [facility] HEMATOLOGY Basophils 0.9 0.0 - 1.0 04/14/2019 [facility] HEMATOLOGY Eosinophils 1.6 0.0 - 4.0 04/14/2019 [facility] HEMATOLOGY Segs 64.1 45.0 - 75.0 04/14/2019 [facility] HEMATOLOGY Lymphocytes 27.6 20.0 - 40.0 04/14/2019 [facility] URINE AND STOOL UA Hyal Cast 3 0 - 2 04/14/2019 [facility] URINE AND STOOL UA CaOx [place] Occasional /HPF None Seen /HPF 04/14/[address] [facility] [address] URINE AND STOOL UA Color Karen [...] UA Protein Negative mg/dL Negative mg/dL 04/14/[address] [facility] [address] URINE AND STOOL UA Bili Negative *NA* (04/14/19 3:57 AM) Negative 04/14/2019 [facility] URINE AND STOOL UA Ketones Negative mg/dL Negative mg/dL 04/14/[address] [facility] [address] URINE AND STOOL UA Glucose Negative mg/dL Negative mg/dL 04/14/[address] [facility] [address] URINE AND STOOL UA Blood Negative (04/14/19 3:57 AM) Negative 04/14/2019 [facility] URINE AND STOOL UA Leuk Est Trace *ABN* (04/14/19 3:57 AM) Negative 04/14/2019 [facility] URINE AND STOOL UA Nitrite Negative (04/14/19 3:57 AM) Negative 04/14/2019 [facility] URINE AND STOOL UA Turbidity Marked *ABN* (04/14/19 3:57 AM) Clear 04/14/2019 [facility] URINE AND STOOL UA pH 5.0 5.0 - 8.0 04/14/2019 [facility] URINE AND STOOL UA Spec Grav 1.030 <=1.030 04/14/2019 [facility] URINE AND STOOL UA Bacteria Occasional /HPF None Seen /HPF 05/03/[address] [facility] [address] URINE AND STOOL UA Hyal Cast 1 0 - 2 05/03/2017 [facility] URINE AND STOOL UA Mucus Few /LPF None Seen /LPF 05/03/2017 [facility] URINE AND STOOL UA Urobilinogen <=1.0 mg/dL 0.1 - 1.0 05/03/2017 [facility] URINE AND STOOL UA Color Yellow *NA* (05/03/17 10:50 AM) Yellow 05/03/2017 [facility] URINE AND STOOL UA Turbidity Marked *ABN* (05/03/17 10:50 AM) Clear 05/03/2017 [facility] URINE AND STOOL UA Spec Grav 1.024 <=1.030 05/03/2017 [facility] URINE AND STOOL UA Leuk Est Negative (05/03/17 10:50 AM) Negative 05/03/2017 [facility] URINE AND STOOL UA Sq Epi Few /LPF Few /LPF 05/03/2017 [facility] URINE AND STOOL UA Nitrite Negative (05/03/17 10:50 AM) Negative 05/03/2017 [facility] URINE AND STOOL UA Blood Moderate *ABN* (05/03/17 10:50 AM) Negative 05/03/2017 [facility] URINE AND STOOL UA WBC 1 0 - 5 05/03/2017 [facility] URINE AND STOOL UA Glucose Negative mg/dL Negative mg/dL 05/03/2017 [facility] URINE AND STOOL UA RBC 17 0 - 2 05/03/2017 [facility] URINE AND STOOL UA Protein Negative mg/dL Negative mg/dL 05/03/[address] [facility] [address] URINE AND STOOL UA Ketones 20 mg/dL Negative mg/dL 05/03/2017 [facility] URINE AND STOOL UA pH 5.0 5.0 - 8.0 05/03/2017 [facility] URINE AND STOOL UA Bili Negative *NA* (05/03/17 10:50 AM) Negative 05/03/2017 [facility] URINE CHEM U Preg Negat karie (05/03/17 10:50 AM) Negative 05/03/2017 [facility] Pathology Reports No Data Provided for This Section Diagnostic Reports Report Value Date Source Brain/IAC's w/wo contrast MRI Patient Name: THERESA WARNER : 1990; Age: 29 years y/o Female MR: [id number] Study: w/wo contrast MRI 08/01/2019 8:22 PM [...] imaging of the brain and IACs. 08/01/2019 [facility] Abdomen AP DX Patient Name: ME MARYJANE WARNER : 1990; Age: 28 years y/o Female MR: [id number] Study: Abdomen AP DX 04/14/2019 5:22 PM CDT Ordering Physician: Maarh Pedroza MD Clinical Indication: - abdominal pain, [...] No dilated bowel loops. SL: [id number] 04/14/2019 [facility] Chest 1view DX Clinical Indica tion: - cough, hemoptysis Comparison: None FINDINGS: The AP chest radiograph shows normal lung volumes without interstitial or airspace opacities, pleural effusions or pneumothorax. The cardiomediastinal contours are normal. The trachea is midline. There are no clinically significant osseous abnormalities noted. IMPRESSION: No chest radiographic evidence of acute cardiopulmonary disease. SL:82 04/14/2019 [facility] Pelvis Transvag w Pelvis Doppler US [...] ovaries bila terally. 2. Intrauterine device. SL: [id number] 05/03/2017 [facility] Consultation Notes No Data Provided for This Section Discharge Summaries No Data Provided for This Section History and Physicals No Data Provided for This Section Vital Signs Vital Sign Value Date Comments Source Respitory Rate 17 04/15/2019 [facility] Systolic (mm Hg) 119 04/15/2019 [facility] Diastolic (mm Hg) 81 04/15/2019 [facility] Heart Rate 80 04/15/2019 [facility] Temperature Oral (F) 98.3 F 04/15/2019 [facility] Systolic (mm Hg) 130 04/15/2019 [facility] Diastolic (mm Hg) 82 04/15/2019 [facility] Respitory Rate 16 04/15/2019 [facility] Temperature Oral (F) 97.9 F 04/15/2019 [facility] Heart Rate 81 04/15/2019 [facility] Systolic (mm Hg) 109 04/14/2019 [facility] Diastolic (mm Hg) 73 04/14/2019 [facility] Respitory Rate 16 04/14/2019 [facility] Temperature Oral (F) 97.9 F 04/14/2019 [facility] Heart Rate 82 04/14/2019 [facility] BMI Calculated 43.11 04/14/2019 [facility] Height 149.86 cm 04/14/2019 [facility] Weight 96.818 04/14/2019 [facility] Weight 96.818 04/14/2019 [facility] BMI Calculated 43.11 04/14/2019 [facility] Height 149.86 cm 04/14/2019 [facility] Systolic (mm Hg) 157 05/03/2017 [facility] Diastolic (mm Hg) 89 05/03/2017 [facility] Temperature Oral (F) 98.0 F 05/03/2017 [facility] Respitory Rate 18 05/03/2017 [facility] Heart Rate 79 05/03/2017 [facility] Height 149.86 cm 05/03/2017 [facility] BMI Calculated 38.46 05/03/2017 [facility] Weight 86.364 05/03/2017 [facility] Respitory Rate 18 05/03/2017 [facility] Heart Rate 93 05/03/2017 [facility] Temperature Oral (F) 98.4 F 05/03/2017 [facility] Systolic (mm Hg) 136 05/03/2017 [facility] Diastolic (mm Hg) 84 05/03/2017 [facility] Encounters Location Location Details Encounter Type Encounter Number Reason For Visit Attending Provider ADM Date DC Date Status Source OD [id number] 789.0 - ABDOMINAL PAIN GINGER ADAIR 09/14/2012 Active [facility] Emergency [id number] Kaleb Amos 05/03/2017 05/03/2017 [facility] Observation [id number] Marah Tedja 04/14/2019 04/15/2019 [facility] Outpatient [id number] Kathryn Crabtreeonald 08/02/2019 08/02/2019 [facility] Procedures Procedure Code Date Perfomer Comments Source Procedure<sup>1</sup> [id number] [facility] Assessment and Plan Assessment and Plan Date Source Extracted from:Title: Clinical Document Author: Pushpa Nunez Date: 04/15/19 Progress Note - Daily [facility] Completed: Monday, APRIL 15, 2019, 09:23 by [...] Q6H 04/14/19 metoclopramide (Reglan) 10 mg I SALES ENGAGEMENT EXECUTIVE Q6H 04/14/19 morphine Sulfate 2 mg IV [...] ml/hr 04/14/19 (Completed) ondansetron 4 mg I SALES ENGAGEMENT EXECUTIVE ONCE 04/14/19 (Discontinued) pantoprazole 40 mg IVP [...] I have examined the patient with the CAMPAIGN DIRECTOR and confirmed the essential components of history, physical examination, diagnosis and treatment plan. I agree with the patient's care as documented by the CAMPAIGN DIRECTOR, and amended as needed herein by me. [...] I have examined the patient with the CAMPAIGN DIRECTOR and confirmed the essential components of history, physical examination, diagnosis and treatment plan. I agree with the patient's care as documented by the CAMPAIGN DIRECTOR, and amended as needed herein by me. [...] lly evaluated SCD anticipate 2-3 midnights 04/15/2019 [facility] Plan of Care No Data Provided for This Section Social History Social History Date Source Social History TypeResponse Smoking Status Never smoker; Exposure to Tobacco Smoke None; Cigarette Smoking Last 365 Days No; Reg Smoking Cessation Counseling No entered on: 04/14/19 04/14/2019 [facility] Family History No Data Provided for This Section Advance Directives No Data Provided for This Section Functional Status No Data Provided for This Section
--- OUTSIDE RECORDS SUMMARY | 2020-09-03 00:52 | XMS REPORT | Continuity of Care Document ---
Author Author [facility] t Organization [facility] Address [address] [place] [address] Phone Unavailable Care Team Providers Care Elevator Inspector Name Role Phone NO, PCP PCP Unavailable BIN SANDERSON Attphys Unavailable Luann Garcia Attphys Marah Pedroza Attphys Graham Amos Attphys Marah Pedroza Admphys Payers Payer Name Policy Type Policy Number Effective Date Expiration Date [facility]el g[id number] [id number] 2017 00:00:00 [facility] Problems Condition Name Condition Details Condition Category Status Onset Date Resolution Date Last Treatment Date Treating Clinician Comments Source R42 DIZZINESS AND GIDDINESS, H81.90 UNSP R42 DIZZINESS AND GIDDINESS, H81.90 UNSP Active 07/20/2019 [facility] Diagnosis Ac tive 2019-07-20 00:00:00 2019-08-01 19:21:00 Reji emoriadrián Duran GI BLEED GI B LEED Active 04/13/2019 [facility] Active 2019-04-13 00:00:00 2019-04-15 14:37:00 Margo Duran VOMITING BLOOD VOMI TING BLOOD Active 04/13/2019 [facility] Active 2019-04-13 00:00:00 2019-04-14 02:15:00 Margo Durna PELVIC PAIN PELV IC PAIN Active 05/03/2017 [facility] Active 2017-05-03 00:00:00 2017-05-03 10:49:00 Margo Duran 789.0 - ABDOMINAL PAIN 789. 0 - ABDOMINAL PAIN Active 09/13/2012 [facility] Active 2012-09-13 00:01:00 2012-09-14 12:29:00 [facility] Problem Condition Active [facility] Hypertensive disorder, systemic arterial (disorder) Hypertensive disorder, systemic arterial (disorder) Resolved Problem 08/03/2019 [facility] Problem Resolved 2019-08-03 22:37:14 [facility] GASTROINTESTINAL HEMORRHAGE, UNSPECIFIED GASTROINTESTINAL HEMORRHAGE, UNSPECIFIED Active [facility] Act karie 2019-04-15 14:37:00 [facility] Left lower quadrant pain Left lower quadrant pain 05/03/2017 05/06/2017 [facility] Problem 2017-05-03 05:00:00 2016 00:33:02 2017-05-06 00:33:02 [facility] Allergies, Adverse Reactions, Alerts Allergy Name Allergy Type Status Severity Reaction(s) Onset Date Inacti ve Date Treating Clinician Comments Source Penicillin Allergy to substance Active [facility] 2018-08-24 00:00:00 [facility] penicillins penicillins Active [facility] HYDROcodone HYDROcodone Active [facility] Social History Social Habit Start Date Stop Date Quantity Comments Source Sex Assigned At 1990 00:00:00 1990 00:00:00 Female [facility] Smoking Status Start Date Stop Date Source Social History [facility] Medications Ordered Medication Name Filled Medication Name Start Date Stop Da te Current Medication? Ordering Clinician Indication Dosage Frequency Signature (SIG) Comments Components Source omeprazole 40 mg oral delayed release capsule 2019-04-15 18:29:0 0 Yes 40 mg, PO, Daily, # 30 cap, 0 Refill(s), Pharmacy: [facility] [id number] [facility] Omeprazole 2019-04-15 14:00:00 No 40 mg, Route: PO, Daily, Dosing Weight 96.818, kg, Start date: 04/15/19 9:00:00 CDT, Duration: 30 day, Stop date: 05/14/19 9:00:00 CDT [facility] Fluoxetine 2019-04-15 14:00:00 No Notes: (S amaya as: Prozac) [facility] Xylocaine Viscous 2% mucous membrane solution 2019-04-14 22:24:0 0 No Notes: (Same as: Xylocaine) Yury rial [facility] Al hydroxide/Mg hydroxide/simethicone 2019-04-14 22:23:00 N o Notes: (aluminum hydroxide-magnesium hyd-simethicone [phone]/5ml 30 ml ud ANA) Margo Duran Reglan 2019-04-14 22:20:00 No Notes: (Same as: Reglan) [facility] GI cocktail (aluminum hydroxide/magnesium hydroxide/lidocain e/simethicone) 2019-04-14 22:20:00 No 30 ml, Route: PO, Drug Form: SUSP, Dosing Weight 96.818, kg, Q6H, PRN, Routine, Start date: 04/14/19 17:20:00 CDT, Duration: 30 day, Stop date: 05/14/19 17:19:00 CDT, abdominal pain [facility] [place] pantoprazole 2019-04-14 21:50:00 No Notes: Same as: Protonix Mix in 5 mL apple juice or applesauce for oral & 10mL apple juice for NG tube [facility] Aluminum Hydroxide / Magnesium Hydroxide / Simethicone 2019-04-14 19:17:00 No Notes: (aluminu m hydroxide-magnesium hyd-simethicone [phone]/5ml 30 ml ud ANA) [facility] Omeprazole 2019-04-14 16:44:00 No 40 mg, PO , Daily, 0 Refill(s) Margo [facility] bismuth subsalicylate 262 mg oral tablet 2019-04-14 16:44:00 No 524 mg = 2 tab, CHEW, QID, PRN for dyspepsia, # 12 tab, 0 Refill(s) [facility] Zofran 2019-04-14 16:44:00 Yes 4 mg, PO, TID , 0 Refill(s) [facility] Roger Metronidazole 2019-04-14 16:44:00 No 500 mg = 1 tab, PO, BID, # 14 tab, 0 Refill(s) Margo Duran Levonorgestrel 0.720479 MG/HR Drug Implant [Geno] 2019-03 16:44:00 Yes 13.5 mg = 1 ea, Intrauteral, ONCE, 0 Ref ill(s) Margo Duran Tetracycline 500 MG Oral Capsule 2019-04-14 16:44:00 No 500 mg = 1 cap, PO, Q6H, # 28 cap, 0 Refill(s) Yury Duran Fluoxetine 2019-04-14 16:44:00 Yes 1 0 mg, PO, Daily, 0 Refill(s) [facility] Zofran 2019-04-14 14:38:00 No Notes: (Same as: Zofran) MEDICATION WASTE Product Size: 4 mg Product Wasted: ___ mg [facility] Sodium Chloride 0.9% IV 1,000 mL 2019-04-14 14:22:00 No 1,000 mL, Rate: 25 ml/hr, Infuse over: 40 hr, Route: IV, Dosing Weight 96.818 kg, Total Volume: 1,000, Start date: 04/14/19 9:22:00 CDT, Duration: 1 day, Stop date: 04/15/19 9:21:00 CDT, 2.05, m2 [facility] Morphine 2019-04-14 09:53:00 No 2 mg, 1 mL, Route: IV, Drug form: SOLN, Q4H, Dosing Weight 96.818, kg, PRN Pain Score 7-10, Start date: 04/14/19 4:53:00 CDT, Duration: 30 day, Stop date: 05/14/19 4:52:[address] [facility] Saline Flush 0.9% 2019-04-14 09:50:00 No Notes: (Same as: BD Posiflush) [facility] Lactated Ringers IV 1,000 mL 2019-04-14 09:50:00 No 1,000 mL, Rate: 100 ml/hr, Infuse over: 10 hr, Route: IV, Dosing Weight 96.818 kg, Total Volume: 1,000, Start date: 04/14/19 4:50:00 CDT, Duration: 30 day, Stop date: 05/14/19 4:49:00 CDT, 2.05, m2 [facility] Ondansetron 2019-04-14 07:48:00 No Notes: (Same as: Zofran) MEDICATION WASTE Product Size: 4 mg Product Wasted: ___ mg [facility] Sodium Chloride 0.9% (Bolus) IV 2019-04-14 07:48:00 No 1,000 mL, 1000 ml/hr, Infuse Over: 1 hr, Route: IV, 1,000, Drug form: INJ, ONCE, Priority: STAT, Dosing Weight 96.818 kg, Start date: 04/14/19 2:48:00 CDT, Stop date: 04/14/19 2:48:00 CDT [facility] Protonix 2019-04-14 07:14:00 No 80 mg, Route: IVP, ONCE, Dosing Weight 96.818, kg, Priority: STAT, Start date: 04/14/19 2:14:00 CDT, Stop date: 04/14/19 2:14:00 CDT [facility] pantoprazole 2019-04-14 06:57:00 No 40 mg, Route: IVP, ONCE, Dosing Weight 96.818, kg, Priority: STAT, Start date: 04/14/19 1:57:00 CDT, Stop date: 04/14/19 1:57:00 CDT [facility] Zofran 2017-05-03 17:57:00 No 4 mg, Route: PO, Drug form: TABDIS, ONCE, Dosing Weight 86.364, kg, Priority: STAT, Start date: 05/03/17 12:57:00 CDT, Stop date: 05/03/17 12:57:00 CDT [facility] Ondansetron 4 MG Oral Tablet [Zofran] 2017-05-03 17:56:00 Y es 4 mg = 1 tab, PO, BID, X 5 day, # 10 tab, 0 Refill(s) [facility] Acetaminophen 300 MG / Codeine Phosphate 30 MG Oral Tablet [Tylenol with Codeine #3] 2017-05-03 17:56:00 No 1 - 2 tab, PO, Q4H, PRN Pain, X 1 day, # 10 tab, 0 Refill(s) [facility] Acetaminophen 300 MG / Codeine Phosphate 30 MG Oral Tablet [Tylenol with Codeine #3] 2017-05-03 16:17:00 No 1 tab, Route: PO, Drug Form: TAB, Dosing Weight 86.364, kg, ONCE, STAT, Start date: 05/03/17 11:17:00 CDT, Stop date: 05/03/17 11:17:00 CDT [facility] Acetaminophen 300 MG / Codeine Phosphate 30 MG Oral Tablet [Tylenol with Codeine #3] 2017-05-03 15:37:00 No 1 tab, Route: PO, Drug Form: TAB, Dosing Weight 86.364, kg, ONCE, STAT, Start date: 05/03/17 10:37:00 CDT, Stop date: 05/03/17 10:37:[address] [facility] Vital Signs Vital Name Observation Time Observation Value Comments Source Body Temperature 2020-06-26 21:37:00 98.2 [degF] [facility] Weight 2020-06-26 20:00:00 202 [lb_av] [facility] BMI (Body Mass Index) 2020-06-26 20:00:00 40.8 kg/m2 [facility] Respitory Rate 2019-04-15 12:43:00 Memori al [facility] Systolic (mm Hg) 2019-04-15 12:43:00 Yury rial [place] Diastolic (mm Hg) 2019-04-15 12:43:00 Mem o[facility] [place] Heart Rate 2019-04-15 12:43:00 [facility] [place] Temperature Oral (F) 2019-04-15 12:43:00 98.3 F [facility] [place] Systolic (mm Hg) 2019-04-15 04:09:00 Yury rial [place] Diastolic (mm Hg) 2019-04-15 04:09:00 Mem orial Roger Respitory Rate 2019-04-15 04:09:00 Memori al [facility] Temperature Oral (F) 2019-04-15 04:09:00 97.9 F [facility] [place] Heart Rate 2019-04-15 04:09:00 [facility] Systolic (mm Hg) 2019-04-14 21:03:00 Yury rial [place] Diastolic (mm Hg) 2019-04-14 21:03:00 Mem orial Roger Respitory Rate 2019-04-14 21:03:00 Memori [facility] [place] Temperature Oral (F) 2019-04-14 21:03:00 97.9 F [facility] Heart Rate 2019-04-14 14:23:00 [facility] BMI Calculated 2019-04-14 11:10:00 [facility] Height 2019-04-14 11:10:00 149.86 cm [facility] Weight 2019-04-14 11:10:00 [facility] [place] Weight 2019-04-14 06:27:00 [facility] BMI Calculated 2019-04-14 06:27:00 [facility] [place] Height 2019-04-14 06:27:00 149.86 cm [facility] Systolic (mm Hg) 2017-05-03 18:41:00 Yury rial [facility] Diastolic (mm Hg) 2017-05-03 18:41:00 Mem orial [facility] Temperature Oral (F) 2017-05-03 18:41:00 98.0 F [facility] [place] Respitory Rate 2017-05-03 18:41:00 Mem[facility] [place] Heart Rate 2017-05-03 18:41:00 [facility] Height 2017-05-03 15:09:00 149.86 cm [facility] [place] BMI Calculated 2017-05-03 15:09:00 Memori [facility] Weight 2017-05-03 15:09:00 [facility] Respitory Rate 2017-05-03 15:09:00 [facility] [place] Heart Rate 2017-05-03 15:09:00 [facility] Temperature Oral (F) 2017-05-03 15:09:00 98.4 F [facility] [place] Systolic (mm Hg) 2017-05-03 15:09:00 Yury rial [place] Diastolic (mm Hg) 2017-05-03 15:09:00 Mem orial [place] Procedures Procedure Date / Time Performed Performing Clinician [facility] e X-ray of chest, two views 2020-06-26 00:00:00 [facility] Procedure<sup>1</sup> [facility] H ermann Plan of Care Planned Activity Planned Date Details Comments Source Instructions Heartburn [facility] Encounters Start Date/Time End Date/Time Encounter Type Admission Type [facility] Care Department Encounter ID Source 2020-06-26 19:58:00 2020-06-26 21:42:00 Departed Emergency Room 1 BIN SANDERSON [facility] [id number] [facility] 2019-08-01 19:12:00 2019-08-01 23:59:00 [facility] [id number] 2019-08-01 19:12:00 2019-08-01 19:12:00 [id number] 2019-04-14 01:24:34 2019-04-15 14:03:00 Outpatient Margoth Pedroza [facility] [id number] 2019-04-14 04:56:00 2019-04-14 04:56:00 Outpatient E [id number] 2018-08-24 05:37:00 2018-08-24 07:50:[address] [facility] [id number] [facility] 2017-05-03 09:59:00 2017-05-03 13:44:00 Outpatient Dennise Amos [facility] [id number] Results Test Description Test Time Test Comments Results Result Comments Source CHEST 2 VIEWS 2020-06-26 21:18:00 [place] [address] Patient Name: THERESA WARNER MR #: [id number] : 1990 Age/Sex: 30/F Req #: [id number] Adm Physician: Ordered by: BIN SANDERSON DO Report #: [id number] Location: ER Room/Bed: Procedure: [id number] DX/CHEST 2 VIEWS Exam Date: 06/26/20 Exam Time: 2105 REPORT STATUS: Signed EXAMINATION: CHEST 2 VIEWS INDICATION: COUGH FOLLOWING MEAL COMPARISON: None FINDINGS: TUBES and LINES: None. LUNGS: Normal lung volumes. Lungs are clear. No consolidations. PLEURA: No pleural effusion or pneumothorax. HEART AND MEDIASTINUM: The cardiomediastinal silhouette is unremarkable. BONES AND SOFT TISSUES: No acute osseous lesion. Soft tissues are unremarkable. UPPER ABDOMEN: No free air under the diaphragm. IMPRESSION: No acute thoracic radiographic abnormality. Signed by: Mariajose Landis MD on 06/26/2020 9:22 PM Dictated By: MARIAJOSE LANDIS MD 21 Transcribed By: ANGELES on 06/26/202121 COPY TO: BIN SANDERSON HEMATOLOGY 2019-04-15 11:16:00 13.8 [facility] HEMATOLOGY 2019-04-15 11:16:00 40.8 [facility] HEMATOLOGY 2019-04-15 01:48:00 13.6 [facility] HEMATOLOGY 2019-04-15 01:48:00 40.1 [facility] HEMATOLOGY 2019-04-14 17:26:00 14.2 [facility] HEMATOLOGY 2019-04-14 17:26:00 42.3 [facility] HEMATOLOGY 2019-04-14 09:56:00 Test Item PTT (test code = PTT) 25.8 s 22.9-35.8 [facility]oyexadGJDMKPJXES4169-33-43 09:56:00* Test Item Value Reference Range Interpretation Comments PT (test code = PT) 12.7 s 12.0-14.7 [facility]1138-12-36 09:56:00* Test Item Value Reference Range Interpretation Comments INR (test code = INR) 0.97 1 0.85-1.17 [facility] [id number] 08:57:00Negative (04/14/19 3:57 AM) [facility] HermannCHEM [id number] 08:57:85917Waefibbk HermannCHEM PANEL 2019-04-14 08:57:006.8[facility] HermannCHEM [id number] 08:57:0095[facility] HermannCHEM [id number] 08:57:0042[facility] HermannCHEM RNPHQ9611-85-52 08:57:0046[facility] HermannCHEM [id number] 08:57:0062[facility] HermannCHEM [id number] 08:57:008.6[facility] HermannCHEM [id number] 08:57:004.5 [facility]ann[facility] [id number] 08:57:23593Psjtauui HermannCHEM PANEL 2019-04-14 08:57:0022[facility] HermannCHEM [id number] 08:57:96112Eqwwwsxj HermannCHEM ZPUXO9719-34-26 08:57:0014[facility] HermannCHEM [id number] 08:57:000.85[facility] HermannCHEM YZYRR4393-22-18 08:57:01392Yfuutybs HermannCHEM QQXFX5542-97-69 08:57:000.5[facility] HermannCHEM NDFYA6743-75-63 08:57:003.1 [facility]ann[facility]M [id number] 08:57:003.7[facility] HermannCHEM PANEL 2019-04-14 08:57:00* Test Item Value Reference Range Interpretation Comments A/G Ratio (test code = A/G Ratio) 0.8 1 0.7-1.6 [facility] HermannCHEM [id number] 08:57:00* Test Item Value Reference Range Interpretation Comments B/C Ratio (test code = B/C Ratio) 16 1 6-25 [facility] HermannCHEM [id number] 08:57:0012.5[facility] HermannENDOCRINOLOGY 2019-04-14 08:57:00Negative *NA*(04/14/19 3:57 AM)[facility] HermannHEMATOLOGY 2019-04-14 08:57:004.70[facility] JynsnnaCOJOQDHYNI3629-95-76 08:57:007.0[facility] ZdsesydVHMNCDNLOX3005-76-27 08:57:0089.4[facility] MmufojwSJRDGBJRBG7860-16-81 08:57:00* Test Item Value Reference Range Interpretation Comments MCH (test code = MCH) 30.5 pg 27.0-31.0 [facility] WxonycqYIBRIHAGAF0582-86-58 08:57:0034.1[facility] HermannHEMATOLOGY 2019-04-14 08:57:008.8[facility] RlmatmrWGTAYLRDTV3852-21-53 08:57:50948Blwoqsai WeainsfMYAAGNOAIU1546-71-44 08:57:0012.7[facility] OjcxjisXHLGZUQEKW5931-65-69 08:57:004.5[facility] RyoiouuUWZKRJTBLP1615-44-04 08:57:001.9[facility] [place] FUMIDGSKZA1496-60-50 08:57:000.4[facility] TrtoledJJUCNOXFMK5915-58-62 08:57:000.1 [facility] WfnvwyzNTPHGDNZWB4019-32-36 08:57:000.1[facility] HermannHEMATOLOGY 2019-04-14 08:57:005.8[facility] TkpgjjzIOPOZXCVCK6994-29-15 08:57:000.9[facility] OmqhibpJBSUIKUKMU6333-42-62 08:57:001.6[facility] XycpiffCUYGAXVGMP5906-87-99 08:57:0064.1[facility] WnxcrfuWGDLFGKJYF3854-04-68 08:57:0027.6[facility] [place] URINE AND ROCCX6401-05-64 08:57:003[facility]ann[facility] AND [id number] 08:57:003[facility]ann[facility] AND BOQKS1190-59-66 08:57:004[facility] URINE AND [id number] 08:57:00Negative *NA*(04/14/19 3:57 AM)[facility] URINE AND [id number] 08:57:00Negative (04/14/19 3:57 AM)[facility] URINE AND [id number] 08:57:00Trace *ABN*(04/14/19 3:57 AM)[facility] URINE AND [id number] 08:57:00Negative (04/14/19 3:57 AM)[facility] [place] URINE AND [id number] 08:57:00Marked *ABN*(04/14/19 3:57 AM)[facility] URINE AND [id number] 08:57:00* Test Item Value Reference Range Interpretation Comments UA pH (test code = UA pH) 5.0 1 5.0-8.0 [facility] [id number] 08:57:00* Test Item Value Reference Range Interpretation Comments UA Spec Grav (test code = UA Spec Grav) 1.030 1 [facility] [id number] 15:50:001[facility] AND [id number] 15:50:00Yellow *NA*(05/03/17 10:50 AM)[facility] [id number] 15:50:00Marked *ABN*(05/03/17 10:50 AM)[facility] [id number] 15:50:001.024[facility] [id number] 15:50:00 Negative (05/03/17 10:50 AM)[facility] [id number] 15:50:00 Negative (05/03/17 10:50 AM)[facility] [id number] 15:50:00 Moderate *ABN*(05/03/17 10:50 AM)[facility] [id number] 15:50:001[facility] [id number] 15:50:0017[facility] [place] URINE AND [id number] 15:50:005.0[facility]ann[facility] AND [id number] 15:50:00Negative *NA*(05/03/17 10:50 AM)[facility]ann[facility] [id number] 15:50:00Negative (05/03/17 10:50 AM)[facility] [place]
--- NOTE | 2020-09-03 00:56 | Emergency Department Note ---
History of Present Illnes History of Present Illness Chief Complaint: nasal congestion History of Present Illness This is a 30 year old female, with history of seasonal allergies and anxiety, who presents with a one-week history of progressively worsening nasal congestion and "scratchy" throat. The nasal congestion worsened this evening, and she was unable to sleep due to the inability to breathe through her nose. Patient has tried taking Brissa and using a Vicks inhaler, without significant improvement. She denies any fever, chills, nausea, or vomiting. She denies any chest tightness, chest pain, or history of asthma. She has not been using nasal sprays or decongestants. LMP was 08/13/20. Historian: Patient Arrival Mode: Car Associate Director Career Services Required: No Onset (how long ago): week(s) (1) Location: nose Quality: congestion Radiation: Reports non-radiation Severity: moderate Onset quality: sudden Duration (how long): week(s) (1) Timing of current episode: constant Progression: unchanged Chronicity: new Context: Denies recent illness, Denies trauma/injury Relieving factors: none Exacerbating factors: none Associated symptoms: Denies chest pain, Denies cough, Denies fever/chills, Denies headaches, Denies nausea/vomiting, Denies rash, Denies shortness of breath Treatments prior to arrival: none Risk factors: hx of seasonal allergies; Past Medical/Family History Physician Review I have reviewed the patient's past medical and family history. Any updates have been documented here. Past Medical History Recent Fever: No Clinical Suspicion of Infectio: No New/Unexplained Change in Ment: No Past Medical History: Anxiety Other Medical History: VITAMIN-D DEFICIENCY INDIGESTION Past Surgical History: None Social History Smoking Cessation: Never Smoker Alcohol Use: None Any Illegal Drug Use: No TB Exposure/Symptoms: No Physically hurt or threatened: No Family History Family history of heart diseas: No Other Last Tetanus: UNK Any Pre-Existing Lines (PICC,: No Is patient up to date on immun: No Review of Systems Review of Systems Constitutional: Reports no symptoms; Denies chills, Denies fever EENTM: Reports nose pain, Reports nose congestion (erythematous and edematous inferior nasal turbinates turbinates); Denies eye pain, Denies tearing, Denies double vision Cardiovascular: Denies chest pain, Denies palpitations Respiratory: Denies cough, Denies dyspnea Gastrointestinal: Denies abdominal pain, Denies nausea, Denies vomiting Genitourinary: Reports no symptoms Musculoskeletal: Denies back pain, Denies joint pain Integumentary: Denies change in color, Denies rash Neurological: Denies headache Psychological: Reports anxiety Hematological/Lymphatic: Reports no symptoms Review of other systems: All other systems negative Physical Exam Related Data Allergies: Coded Allergies: hydrocodone (Verified Allergy, Intermediate, ITCH, 08/24/18) Penicillins (Unverified Allergy, Unknown, FEVERS, 08/24/18) Vital signs reviewed: Yes Physical Exam CONSTITUTIONAL Constitutional: Present well-developed, Present well-nourished; Absent distressed, Absent ill appearing HENT HENT: Present normocephalic, Present atraumatic, Present oropharynx clear/moist, Present oropharynx normal, Present nose normal, Present nasal congestion HENT L/R: Present left ext ear normal, Present right ext ear normal EYES Eyes: Reports PERRL, Reports conjunctivae normal NECK Neck: Present ROM normal; Absent cervical adenopathy PULMONARY Pulmonary: Present effort normal, Present breath sounds normal CARDIOVASCULAR Cardiovascular: Present regular rhythm, Present heart sounds normal, Present capillary refill normal, Present normal rate; Absent murmur GASTROINTESTINAL GENITOURINARY Genitourinary: Present exam deferred SKIN Skin: Present warm, Present dry (are 1 by); Absent rash MUSCULOSKELETAL Musculoskeletal: Present ROM normal; Absent tenderness, Absent swelling NEUROLOGICAL Neurological: Present alert, Present oriented x 3, Present no gross motor or sensory deficits PSYCHOLOGICAL Psychological: Present mood/affect normal, Present judgement normal Results Laboratory Laboratory UPT - negative; Lab results reviewed: Yes Assessment & Plan Medical Decision Making MDM - Recommend to help with nasal congestion and allergies: - CLARITIN-D 12 or 24 hour (generic, store brank works well;behind the counter at the pharmacy. You have to swipe your lease purchase driver's license, due to the pseudophed) - take, as directed. - AFRIN NASAL SPRAY (or generic) - 2 sprays each nostril up to 3x/day, to help relieve nasal congestion, for no more than 2-3 days. Follow this by OCEAN NASAL SALINE SPRAY-->>2-3 sprays each nostril --> blow the nose, and then use NASACORT NASAL SPRAY (over the counter)--> 2 sprays each nostril once daily. You may repeat the Afrin--> Nasal Saline [place] up to 3X/DAY, but you can only use the Nasacort Nasal [place] once daily. You may use the Nasal Saline [place] - as often as needed, to help prevent dryness of the nasal passages, which can cause nose bleeds. Follow-up with your Primary Care Physiciain, if your symptoms persist, after 48 hours. Assessment & Plan Final Impression: (1) Allergic rhinitis (2) Nasal congestion Depart Disposition: HOME, SELF-CARE KASANDRA MENDOZA MD Sep 03, 2020 00:56
[2020-09-03] MEDS ORDERED: OXYMETAZOLINE HCL 0.05% NAS 1 SPRAY BTL ONE ×2 (01:15→01:17)
[2020-09-03] MEDS ORDERED: DEXAMETHASONE SOD PHOS 10 MG/1 ML VIAL IM ONE (01:15)
[2020-09-03] MEDS ORDERED: DEXAMETHASONE SOD PHOS INJ 4 MG/ML VIAL ONE (01:17)
== END 2020-09-03 01:52 | disposition home or self-care (01) ==
LOC: FSED 00:49
DX: J30.9 Allergic rhinitis, unspecified (principal); R09.81 Nasal congestion; F41.9 Anxiety disorder, unspecified; E55.9 Vitamin D deficiency, unspecified
CPT/HCPCS: 81025; 96372; 99282; J1100